=== PATIENT | male | born 1950 | race Caucasian/White ===

== ENCOUNTER 2020-05-14 08:22 | Outpatient (CLI) | payer OTHER, MEDICARE, SELFPAY ==
--- NOTE | 2020-05-14 07:30 | XR_ITS ---
WS: [id number] KUB, 05/14/2020 Clinical Data: RENAL CALCULUS Comparison: KUB, 05/14/2019 Findings: There is a small calcification overlying the midportion of the left kidney. The right kidney is obscu red by fecal material. There are phleboliths in the true pelvis. The patient has had bilateral inguin al hernia repairs. XR/XR KUB [id number] Impression: 1. Possible small left renal calculus. 2. Right kidney is obscured by fecal material.
== END 2020-05-14 08:23 | disposition home or self-care (01) ==
PROVIDERS: PCP Family Medicine; Visit Provider Urology
DX: N20.0 Calculus of kidney (principal)
CPT/HCPCS: 74018; 81001

== ENCOUNTER 2020-06-30 13:46 | Outpatient (CLI) | payer OTHER, SELFPAY ==
--- NOTE | 2020-06-30 13:53 | USCV_ITS ---
Alexander Juarez Age: 69 Gender: M : 1950 Exam Date: 06/30/2020 14:31 Ordering Phys: Sasha Theodore MD Technologist: Nicolle Hodge Exam Location: [facility] [place] Indication: DIZZINESS Risk Factors: Previous Vascular Surgery: None Right Brachial BP: / Left Brachial BP: / Right Left Velocity (cm/s) Spectral Plaque Velocity (cm/s) Spectral Plaque Syst/Diast Broadening Syst/Diast Broadening 66.90/ 15.60 Prox CCA 95.30 / 19.60 72.80/ 19.30 Mid CCA 78.40 / 19.30 70.60/ 19.30 Distal CCA 58.20 / 14.90 75.60/ 17.60 Prox ICA 37.30 / 17.10 58.00/ 18.50 Mid ICA 60.60 / 17.90 57.10/ 19.20 Distal ICA 76.10 / 28.00 64.90 ECA 57.30 0.80 ICA/CCA 0.77 Antegrade Vertebral Antegrade 38.50/ 9.40 cm/s 43.50/ 14.80 cm/s Tri Subclavian Tri 62.40 92.60 CONCLUSIONS Right ICA stenosis <50%. Mild atheromatous plaque right carotid bulb/ICA. Left ICA stenosis <50%. Moderate atheromatous plaque left carotid bulb/ICA. Normal antegrade Doppler flow noted in the right vertebral artery. Normal antegrade Doppler flow noted in the left vertebral artery. Jose Manuel De Los Santos MD (Electronically Signed) Final Date: 30 June 2020 16:47 S
== END 2020-06-30 13:47 | disposition home or self-care (01) ==
LOC: US 13:48
PROVIDERS: PCP Family Medicine; Visit Provider Family Medicine
DX: R42 Dizziness and giddiness (principal); R00.1 Bradycardia, unspecified; I65.23 Occlusion and stenosis of bilateral carotid arteries
CPT/HCPCS: 93880

== ENCOUNTER 2020-10-05 14:17 | Outpatient (CLI) | payer OTHER, SELFPAY ==
--- NOTE | 2020-10-05 14:30 | MR_ITS ---
WS: [id number] MRI BRAIN WITH HIGH-RESOLUTION IMAGING THROUGH THE INTERNAL AUDITORY CANALS WITHOUT AND WITH CONTRAST HISTORY: DIZZINESS AND GIDDINESS COMPARISON: 09/20/2017 TECHNIQUE: Multiplanar, multisequence imaging is performed through the brain. Additional 3 mm imaging performed in multiple planes through the internal auditory canal. Postcontrast imaging with 14 ml's of MultiHance. No acute intracranial hemorrhage, midline shift, edema or mass effect. Mild small vessel ischemic changes in the subcortical and deep white matter. No prior infarcts. There is mild bilateral cerebral and cerebellar atrophy. Again noted is a small venous angioma in the RIGH T temporal lobe. No enhancing masses. No mass at the cerebellopontine angle or along the internal or external auditory canals. Ventricles and extra-axial spaces are normal. No inferior displacement of cerebellar tonsils. Clivus and pituitary gland are normal. Internal and external auditory canals: Unremarkable. Cranial nerves VII and VIII complexes: Unremarkable. No enhancement or mass. Cerebellopontine angles: Normal. Paranasal sinuses: Normal. Mastoid air cells: Normal. Calvarium and scalp: Normal. Visualized [place] and dural venous sinuses demonstrate no abnormality. MR/MR iac's wo/w con* [id number] IMPRESSION: 1. Negative MRI internal auditory canals. Normal cerebellopontine angle. 2. Mild chronic microvascular ischemic disease. 3. Stable RIGHT temporal lobe venous angioma.
[2020-10-05 15:17] LABS: Blood Urea Nitrogen 20 mg/dL (8-23)
[2020-10-05] MEDS: gadobenate dimeglumine 20 mL vial IV (16:59)
== END 2020-10-05 14:18 | disposition home or self-care (01) ==
PROVIDERS: PCP Family Medicine; Visit Provider Specialist
DX: R42 Dizziness and giddiness (principal); Q28.3 Other malformations of cerebral vessels; I67.82 Cerebral ischemia
CPT/HCPCS: 70553; 82565; 84520; A9577

== ENCOUNTER → 2020-10-23 10:26 | Outpatient (BNVA) | payer OTHER, SELFPAY | PROVIDERS: PCP Family Medicine; Visit Provider Surgery | DX: Z20.822 Contact with and (suspected) exposure to COVID-19 (principal) | CPT/HCPCS: 87635 ==

== ENCOUNTER 2020-10-28 08:45 | Day surgery (SDC) | payer OTHER, SELFPAY ==
[2020-10-26 13:51] VITALS: BMI 22.1
[2020-10-28 09:25] VITALS: BP 137/90; PULSE 53; RESP 18; TEMP 36.1; O2SAT 96
[2020-10-28] MEDS: sodium chloride 0.9% 1,000 ML 30 ML IV (09:37)
--- NOTE | 2020-10-28 10:05 | W.PM.OPSUD ---
Surgery/Procedure H&P Update DATE OF PROCEDURE: October 28, 2020 DATE H&P PERFORMED: 09/28/20 H&P UPDATE INFORMATION: I have reviewed H&P completed within last 30 days, I have examined patient prior to procedure and No changes to prior documentation PREOP DIAGNOSIS: Acid reflux disease PRIMARY INDICATION FOR PROCEDURE: The same PLANNED PROCEDURE: Operation Date: 10/28/20 10:15 Proposed Procedures p EGD 63871 K21.9(Not Applicable) - Josef Walker MD
--- NOTE | 2020-10-28 11:27 | ANES.PREANE2 ---
Pre-Anesthetic Assessment Pre-Anesthetic Assessment: Height/Weight: Height 1.75 m Weight 68.039 kg Temp Pulse Resp BP Pulse Ox 97.0 F L 53 L 18 137/90 96 10/28/20 09:25 10/28/20 09:25 10/28/20 09:25 10/28/20 09:25 10/28/20 09:25 Preop Diagnosis: Acid reflux disease Proposed Procedure: Operation Date: 10/28/20 10:15 Proposed Procedures p EGD 53317 K21.9(Not Applicable) - Josef Walker MD Familial anesthetic complications: none Was Beta James taken within 24 hours: N/A Was Clonidine taken within 24 hours: N/A Last intake: Intake Last Liquid Date 10/27/20 Last Liquid Time 19:00 Last Solid Date 10/27/20 Last Solid Time 19:00 Last Intake: 19:00 Social: Social History: No alcohol and No tobacco Exam: Pre-Anes Outpt Exam: alert, oriented x 3, clear to auscultation bilaterally and regular rate & rhythm Airway: Submandibular: WNL Cervical ROM: WNL MP: 2 Dentition: Full Pulmonary: Pulmonary: None reported CV/HEM: CV/HEM: HTN : : None reported Hepatic: Hepatic: None reported GI: GI: GERD Metabolic: Metabolic: None reported Musc/skel: Musc/skel: Lower Back Pain and OA/DJD Neuropsych: Neuropsych: None reported Anesthetic Plan: ASA status: 2 Anesthesia: MAC Meds/Allergies Current Medications: Current Medications Generic Name Dose Route Start Last Admin Trade Name Freq PRN Reason Stop Dose Admin Sodium Chloride 1,000 mls @ 30 ml s/hr 10/28/20 09:15 10/28/20 09:37 Sodium Chloride 0.9% IV 10/29/20 09:14 30 mls/hr .Q24H CLINT Administration PFSH Anesthesia PFSH: Medical History Bladder stone BPH loc w urin obs/LUTS GERD (gastroesophageal reflux disease) Gross hematuria HTN (hypertension) RLS (restless legs syndrome) Status post extracorporeal shock wave therapy LASER LITHOTRIPSY BLADDER STONE Urolithiasis Surgical History Hx of bilateral inguinal hernia repair Family History Father Diabetes Chronic kidney disease (CKD) Mother CAD (coronary artery disease) Social History Smoking and tobacco status: never smoked Alcohol intake: current Alcohol intake frequency: holidays/special occasions only Adopted: No Caregiver/support person: No Lives independently: No Household members: spouse Marital status: Current occupational status: retired Data Anesthesia Cardiac Studies: No Data to Display
[2020-10-28 11:50] VITALS: BP 152/86; PULSE 77; RESP 16; TEMP 36.4; O2SAT 95
--- NOTE | 2020-10-28 11:55 | ANE.PACU2 ---
Inpatient post-anesthesia follow up: Airway intact: Yes Vital signs: Temperature 97.0 F Pulse Rate 53 Respiratory Rate 18 Blood Pressure 137/90 Pulse Oximetry 96 Oxygen Delivery Me thod Room Air Oxygen Flow Rate Fraction of Inspir ed Oxygen Hydration adequate: Yes Nausea and vomiting: No Pain level: 1 Mental status: Baseline
[2020-10-28 12:08] VITALS: BP 106/63; PULSE 64; RESP 16; O2SAT 96
[2020-10-29 06:24] LABS: H. Pylori / CLO Test Negative
== END 2020-10-28 12:20 | disposition home or self-care (01) ==
PROVIDERS: PCP Family Medicine; Visit Provider Surgery
PROC: 0DJ08ZZ Inspection of Upper Intestinal Tract, Via Natural or Artificial Opening Endoscopic (ICD-10-PCS; CPT 43235; principal; 2020-10-28 10:15)
DX: K21.00 Gastro-esophageal reflux disease with esophagitis, without bleeding (principal); K44.9 Diaphragmatic hernia without obstruction or gangrene; K22.70 Barrett's esophagus without dysplasia; K29.70 Gastritis, unspecified, without bleeding; Z79.82 Long term (current) use of aspirin; N40.1 Benign prostatic hyperplasia with lower urinary tract symptoms; N13.8 Other obstructive and reflux uropathy; I10 Essential (primary) hypertension
CPT/HCPCS: 43239; 87077; 88305; 96360; 96361; J2704; J7030

== ENCOUNTER 2021-04-18 10:35 | Observation (INO) | payer OTHER, MEDICARE, SELFPAY ==
[2021-04-18] VITALS (8 sets, daily range): BP systolic 118–158; BP diastolic 83–91; PULSE 59–70; RESP 13–18; TEMP 36.1–36.9; O2SAT 96–100; BMI 22.1
--- NOTE | 2021-04-18 10:59 | ED_ITS ---
HPI - Extremity Injury (Lower) General: Chief Complaint: Extremity Injury, Lower Stated Complaint: Injured Rgt Foot/Ankle Time Seen by Provider: 04/18/21 10:59 History of Present Illness: HPI Narrative: Mr Juarez is a 70-year-old rubén with history of hypertension and vertigo presents emerged department due to fall with leg injury. He reports a history of sudden onset dizzy episodes which caused him to feel off balance. He had another very typical episode of this while at [employer] earlier today. He fell to the ground, no head strike, he immediately had pain and heard a crack sound from his right leg. Since that time he was unable to ambulate. His symptoms are worse with palpation and movement but do not go with rest. Intensity moderate to severe. Quality is aching and sharp. He denies other significant changes in health. No other specific exacerbating or alleviating factors. Review of Systems General: Reports: 10 or more systems reviewed and unremarkable except in HPI and below PFSH ED PFSH: Medical History Bladder stone BPH loc w urin obs/LUTS GERD (gastroesophageal reflux disease) Gross hematuria HTN (hypertension) RLS (restless legs syndrome) Status post extracorporeal shock wave therapy LASER LITHOTRIPSY BLADDER STONE Urolithiasis Surgical History Hx of bilateral inguinal hernia repair Family History Father Diabetes Chronic kidney disease (CKD) Mother CAD (coronary artery disease) Social History Smoking and tobacco status: never smoked Alcohol intake: current Alcohol intake frequency: holidays/special occasions only Adopted: No Caregiver/support person: No Lives independently: No Household members: spouse Marital status: Current occupational status: retired Physical Exam Narrative: EXAM NARRATIVE: GENERAL/CONSTITUTIONAL - well-appearing. Uncomfortable due to leg pain. Eyes - PERRL, no conjunctival injection ENMT - Atraumatic external nose and ears. Moist mucous membranes NECK - supple. trachea midline CARDIOVASCULAR - regular rate and rhythm. Peripheral pulses 2+ and equal RESPIRATORY -clear to auscultation bilaterally. No retractions or accessory muscle use. ABDOMEN/GI - Nontender/Nondistended. No tenderness to percussion or evidence of peritonitis MSK -right lower extremity with palpable deformity, tenderness on the mid to lower third of the lower leg. There is external rotation of the foot/ankle relative to the knee. CMS intact. SKIN - Warm, Dry NEURO - alert and appropriately oriented. strength and sensation intact. Moves all extremities equally. PSYCH - Appropriate mood and affect Procedures Orthopedic Fracture Reduction Fracture #1: Time Out Performed: Yes Side: right Fracture Reduction Location: tibia and fibula Analgesia: procedural sedation Technique: direct manipulation Post Reduction X-rays Demonstrate: acceptable reduction Post-reduction neuro exam: intact Post-reduction vascular exam: intact Splint Applied: Yes Patient Tolerated Procedure: well and no complications Procedural Sedation Indication: fracture/dislocation reduction ASA Class: II Preparation: emu farm worker applied, pulse oximeter, suction/airway equipment at bedside and IV secured IV Propofol dose (mg): 100 Patient Tolerated Procedure: well and no complications Complications: none Course ED course: - Patient was seen and evaluated by me at bedside - Patient placed on cardiac monitors, IV access obtained - Initial evaluation notable for exam as noted above, CMS intact, no evidence of open fracture. - Labs notable for no acute abnormality to explain syncope, given clinical history likely related to chronic vertigo episodes - Imaging notable for proximal fibula and midshaft tibia spiral fractures with rotation. -Dr. Valverde of orthopedic surgery contacted and case was discussed, plan for operative intervention tomorrow -Patient consented for procedural sedation and reduction with planned operative intervention tomorrow. -Procedural sedation and reduction performed. CMS intact after procedure - Upon serial reexamination after treatment the patient was improved - Based on patient history, evaluation, labs, and imaging as interpreted the most likely cause of the patient's condition is complex tibia and fibula fracture. - The results of ED evaluation were discussed with the patient including plan for admission due to requirement for level of care not available if discharged to prevent significant worsening/deterioration. -Hospitalist service contacted and agreed admit the patient - Patient was admitted without further deterioration or significant events. Vital Signs: Vital signs: Vital Signs Temperature 98.2 F 04/20/21 13:31 Pulse Rate 65 04/20/21 13:31 Respiratory Rate 16 04/20/21 13:31 Blood Pressure 154/77 04/20/21 13:31 Pulse Oximetry 97 04/20/21 13:31 MDM - Extremity Injury (Lower) Medical Records: Attestation: I reviewed the patient's medical records. Lab Data: Attestation: I reviewed the patient's lab results. Labs: Lab Results 04/18/21 04/18/21 04/18/21 12:13 12:13 12:13 WBC 8.5 10^3/uL 10^3/ uL (4.0-10.0) RBC 4.40 10^6/uL 10^6 /uL (4.1-5.3) Hgb 14.0 g/dL g/dL (11.7-16.6) Hct 40.8 % L % (42.0-52.0) MCV 92.7 fl fl (80-94) MCH 31.8 pg pg (28.0-34.0) MCHC 34.3 g/dL g/dL (30.0-36.0) RDW 12.9 % % (12.1-15.1) Plt Count 183 10^3/cmm 10^3 /cmm (130-400) MPV 9.3 fL fL (7.4-10.4) Neut % (Auto) 82.7 % % Lymph % (Auto) 8.4 % % [place] % (Auto) 6.1 % % Eos % (Auto) 2.2 % % Baso % (Auto) 0.2 % % Neut # (Auto) 6.99 10^3/uL 10^3 /uL (1.8-7.7) Lymph # (Auto) 0.7 10^3/uL L 10^ 3/uL (0.8-4.8) [place] # (Auto) 0.5 10^3/uL 10^3/ uL (0.2-0.9) Eos # (Auto) 0.2 10^3/uL 10^3/ uL (0.0-0.8) Baso # (Auto) 0.0 10^3/uL 10^3/ uL (0.0-0.1) Nucleated RBC % (a uto) 0 % % Nucleated RBCs # 0.0 /100WBC /100W BC Sodium 139 mmol/L mmol/L (136-145) Potassium 3.9 mmol/L mmol/L (3.5-5.1) Chloride 100 mmol/L mmol/L (98-107) Carbon Dioxide 31 mmol/L H mmol/ L (22-29) Anion Gap 11.9 (5-19) BUN 17 mg/dL mg/dL (8-23) Creatinine 1.0 mg/dL mg/dL (0.7-1.2) GFR Calculation Not Reportable Glucose 106 mg/dL mg/dL (65-115) Calculated Osmolal ity 290 mOsm/kg mOsm/ kg (285-295) Calcium 9.1 mg/dL mg/dL (8.5-10.5) Total Bilirubin 0.4 mg/dL mg/dL (0.15-1.2) AST 14 U/L U/L (0-40) ALT 9 U/L U/L (0-41) Alkaline Phosphata se 87 IU/L IU/L (40-130) Troponin T Baselin e 7 ng/L ng/L (0-15) Total Protein 6.0 g/dL L g/dL (6.6-8.7) Albumin 3.8 g/dL g/dL (3.5-5.2) Globulin 2.2 g/dL g/dL (1.3-4.6) EKG Data^: EKG 1: Attestation: I personally reviewed and interpreted this EKG as follows: EKG interpretation date: 04/18/21 EKG interpretation time: 12:15 Interpretation: Twelve-lead EKG shows a regular sinus rhythm at a rate of 65. [place] interval 202, QRS duration 71, QTc 399. Normal axis. Interpretation: Sinus rhythm. First-degree AV block. Discharge Plan Discharge Patient Disposition: Admitted As Inpatient Admit Provider: Omkar Joseph Condition: Stable Discharge Diet: Cardiac Discharge Activity: Resume usual activity Coding Level of Care Code ED Sample Examiner for [facility] [place]
--- NOTE | 2021-04-18 11:06 | XRR_ITS ---
PROCEDURE INFORMATION: Exam: XR Right Tibia and Fibula Exam date and time: 04/18/2021 11:06 AM Age: 70 years old Clinical indication: Injury or trauma; Fall; Fracture, traumatic; Closed fracture and displaced; Fibula and tibia; Right; Shaft of the fibula; Lower end of tibia; Additional info: Suspected fracture TECHNIQUE: Imaging protocol: XR Right tibia and fibula. Views: 2 views. COMPARISON: CR (LOW EXM, ) 04/18/2021 11:09 AM FINDINGS: Bones/joints: There is unchanged alignment of the mildly overriding spiral fracture of the distal right tibia with lateral displacement of the distal fracture fragments. Nondisplaced fracture of the medial malleolus is noted. Old fracture deformity of the tip of the fibula is identified. Is some sclerosis and bony remodeling of the lateral talus compatible with old osteochondral injury. There is an overriding fracture of the proximal fibula diaphysis with lateral displacement of the distal diaphysis. Proximal fibular fracture also appears to have a nondisplaced component involving the fibular neck. No acute fracture of the proximal tibia or femur. Soft tissues: There is soft tissue edema. XR/XR tibia fibula RT 2V [id number] IMPRESSION: Overriding fractures of the proximal fibula, distal tibia diaphysis and nondisplaced fracture of the medial malleolus are noted.
--- NOTE | 2021-04-18 11:06 | ECG_ITS ---
[facility] Test Date: 2021-04-18 Pat Name: Alexander Juarez Department: Room: 273 Gender: Male Trouble Shooter: : 1950 Requested By: Paulo Talavera Order Number: [id number] Ingrid MD: Carlos Stoddard M.D. Measurements Intervals [place] Rate: 65 P: 55 CO: 202 QRS: 48 QRSD: 71 T: 55 QT: 382 QTc: 399 Interpretive Statements SINUS RHYTHM Compared to ECG 04/19/2019 13:04:00 Sinus bradycardia no longer present Electronically Signed On 04-18-2021 18:16:30 CDT by Carlos Stoddard M.D. [id number]
--- NOTE | 2021-04-18 11:06 | XRR_ITS ---
PROCEDURE INFORMATION: Exam: XR Right Ankle Exam date and time: 04/18/2021 11:06 AM Age: 70 years old Clinical indication: Injury or trauma; Fall; Fracture, traumatic; Closed fracture and displaced; Ankle; Right; Not specified TECHNIQUE: Imaging protocol: XR Right ankle. Views: 1 or 2 views. COMPARISON: No relevant prior studies available. FINDINGS: Bones/joints: There is a spiral fracture of the distal diaphysis of the tibia, nondisplaced fracture of the medial malleolus and chronic appearing osteochondral lesion of the lateral talus and old avulsion fracture of the tip of the fibula. Ankle mortise is intact. Distal tibial fracture fragment is displaced laterally. Moderate degenerative changes in the tibiotalar and subtalar joints are noted. Probable osteochondral bodies are noted in the posterior ankle joint. Soft tissues: There is abundant soft tissue edema. XR/XR ankle RT 2V [id number] IMPRESSION: There is a spiral fracture of the distal diaphysis of the tibia, nondisplaced fracture of the medial malleolus and chronic appearing osteochondral lesion of the lateral talus and old avulsion fracture of the tip of the fibula.
[2021-04-18] MEDS: fentaNYL 50 mcg/mL INJ 2mL IVP ×2 (12:03→13:13)
[2021-04-18] MEDS: sodium chloride 0.9% 1,000 ML 75 ML IV (12:18)
[2021-04-18 12:26] LABS: Basophils % 0.2 %; Eosinophils # 0.2 10^3/uL (0.0-0.8); Eosinophils % 2.2 %; Hematocrit 40.8 % (42.0-52.0); Lymphocytes # 0.7 10^3/uL (0.8-4.8); Lymphocytes % 8.4 %; Mean Corpuscular HGB Conc 34.3 g/dL (30.0-36.0); Mean Corpuscular Hemoglobin 31.8 pg (28.0-34.0); Mean Corpuscular Volume 92.7 fl (80-94); Mean Platelet Volume 9.3 fL (7.4-10.4); Monocytes # 0.5 10^3/uL (0.2-0.9); Monocytes % 6.1 %; Neutrophils # 6.99 10^3/uL (1.8-7.7); Neutrophils % 82.7 %; Nucleated Red Blood Cells % 0 %; Platelet Count 183 10^3/cmm (130-400); Red Cell Distribution Width 12.9 % (12.1-15.1); White Blood Count 8.5 10^3/uL (4.0-10.0)
[2021-04-18 12:48] LABS: Troponin(5th) Baseline 7 ng/L (0-15)
[2021-04-18 12:50] LABS: Alanine Aminotransferase 9 U/L (0-41); Albumin Level 3.8 g/dL (3.5-5.2); Alkaline Phosphatase 87 IU/L (40-130); Anion Gap 11.9 (5-19); Aspartate Amino Transferase 14 U/L (0-40); Blood Urea Nitrogen 17 mg/dL (8-23); Calcium 9.1 mg/dL (8.5-10.5); Carbon Dioxide 31 mmol/L (22-29); Chloride 100 mmol/L (98-107); Globulin 2.2 g/dL (1.3-4.6); Glucose 106 mg/dL (65-115); Osmolality Calculated 290 mOsm/kg (285-295); Potassium 3.9 mmol/L (3.5-5.1); Sodium 139 mmol/L (136-145); Total Bilirubin 0.4 mg/dL (0.15-1.2)
[2021-04-18] MEDS: propofol 10 mg/mL SDV 20 mL IVP (12:50)
--- NOTE | 2021-04-18 13:06 | XRR_ITS ---
PROCEDURE INFORMATION: Exam: XR Right Tibia and Fibula Exam date and time: 04/18/2021 1:06 PM Age: 70 years old Clinical indication: Injury or trauma; Fall; Fracture, traumatic; Closed fracture; Tibia; Right; Additional info: Post reduction TECHNIQUE: Imaging protocol: XR Right tibia and fibula. Views: 2 views. COMPARISON: CR (LOW EXM, ) 04/18/2021 11:10 AM FINDINGS: Bones/joints: Spiral fracture through the proximal fibular shaft with medial angulation. Spiral comminuted fracture through the distal tibial shaft with mild displacement and mild dorsal angulation. Significant improvement in alignment and position of fractures with placement of cast material. Soft tissues: Normal. XR/XR tibia fibula RT 2V [id number] IMPRESSION: 1. Spiral fracture through the proximal fibular shaft with medial angulation. 2. Spiral comminuted fracture through the distal tibial shaft with mild displacement and mild dorsal angulation. 3. Significant improvement in alignment and position of fractures with placement of cast material.
--- NOTE | 2021-04-18 13:29 | PC.NURSE ---
IV Diprovan given by provider at time of moderate sedation
--- NOTE | 2021-04-18 15:13 | P.HP_ITS ---
Providers/Chief Complaint Admitting Physician: Omkar Joseph Primary Care Provider: Guille Betancur MD Chief Complaint: Injured Rgt Foot/Ankle History of Present Illness Very pleasant 70-year-old gentleman with history of chronic recurrent episodes of vertigo, previously assessed by work-up that also included MRI, reports started with hearing loss about a year ago in the right ear suffered a fall after a episode of dizziness at [employer] today with finding of a fracture on the right. ER physician contacted orthopedics who reviewed the case with tentative plans for surgical repair tomorrow. Request is made for hospitalist to admit. Discussing with him, he states otherwise has been at baseline state of health. He gets intermittent episodes of dizziness where everything gets shifty for short time, and then subsides. He tries to brace himself during the night.. Denies any syncopal episodes. He otherwise has not been having any dyspnea. No chest pain. Denies any exertional anginal symptoms. States he walks about 200 yards to the mailbox and unless experiences an episode of dizziness does not have to take a break to rest. States that he takes aspirin only prophylactically. No longer takes meloxicam. With regards to CODE STATUS, he states he would be okay with receiving cardiopulmonary resuscitation in case of cardiopulmonary arrest, but would not want prolonged life support. Review of Systems 2 Const: Denies: fever(s), chills, body aches or malaise Eyes: Denies: change in vision or eye redness ENMT: Denies: throat pain, oral sores or ear or mastoid pain Card: Denies: chest pain, edema, pre-syncope or dyspnea on exertion Resp: Denies: dyspnea, productive cough, change in phlegm color or hemoptysis GI: Denies: abdominal pain, nausea, vomiting, diarrhea, constipation, hematochezia or melena : Denies: flank pain, difficulty urinating, urinary frequency or hematuria Musc: Reports: other (per HPI); Denies: back pain, joint swelling or joint redness Skin/Breast: Denies: rash, sores or new lesions Neuro: Reports: vertigo; Denies: headache(s), numbness in extremities, weakness in extremities, dizziness, confusion or seizure-like activity Endo: Denies: polyuria or polydipsia Eugene/Lymph: Denies: easy bleeding or purpura All/Imm: Denies: urticaria, throat swelling or tongue swelling Medications/Allergies Home Medications Medication Instructions Recorded Confirmed Last Taken Type aspirin 81 mg tablet,delayed 81 mg PO DAILY 05/14/20 04/18/21 04/18/21 History release citalopram 20 mg tablet 20 mg PO DAILY 05/14/20 04/18/21 04/18/21 History gabapentin 300 mg capsule 300 mg PO BID 05/14/20 04/18/21 04/18/21 History hydrochlorothiazide 12.5 mg tablet 12.5 mg PO DAILY 05/14/20 04/18/21 04/18/21 History meloxicam 15 mg tablet 15 mg PO DAILY 05/14/20 04/18/21 04/18/21 History pantoprazole 40 mg tablet,delayed 40 mg PO DAILY 05/14/20 04/18/21 04/18/21 History release tramadol 50 mg tablet 100 mg PO BID PRN 05/14/20 04/18/21 10/27/20 21:00 History Allergies Allergy/AdvReac Type Severity Reaction Status Date / Time Sulfa (Sulfonamide Allergy Unknown Unknown Verified 11/11/20 15:56 Antibiotics) PFSH Acute PFSH: Medical History Bladder stone BPH loc w urin obs/LUTS GERD (gastroesophageal reflux disease) Gross hematuria HTN (hypertension) RLS (restless legs syndrome) Status post extracorporeal shock wave therapy LASER LITHOTRIPSY BLADDER STONE Urolithiasis Surgical History Hx of bilateral inguinal hernia repair Family History Father Diabetes Chronic kidney disease (CKD) Mother CAD (coronary artery disease) Social History Smoking and tobacco status: never smoked Alcohol intake: current Alcohol intake frequency: holidays/special occasions only Adopted: No Caregiver/support person: No Lives independently: No Household members: spouse Marital status: Current occupational status: retired Vitals/I&O/Wt Last Vital Signs Temp 96.9 F L 09/19/21 10:54 Pulse 62 04/18/21 13:51 Resp 13 04/18/21 13:51 BP 135/84 04/18/21 13:51 Pulse Ox 100 04/18/21 13:51 04/18/21 04/18/21 04/18/21 06:59 14:59 22:59 Intake Total 191.25 / 191.25 Balance 191.25 / 191.25 Weight last 48 hrs Weight 68.039 kg Physical Exam Const: COMMON NORMALS: no acute distress, patient oriented x3 and alert GENERAL APPEARANCE: cooperative and comfortable ORIENTATION/CONSCIOUSNESS: Yes awake OTHER: Pleasant, conversant. HENMT: COMMON NORMALS: oropharynx normal Neck/C-Spine: COMMON NORMALS: no JVD Resp: COMMON NORMALS: normal respiratory effort and clear to auscultation bilaterally AUSCULTATION: clear to auscultation bilaterally Cardio: COMMON NORMALS: no JVD, regular rhythm, S1 normal heart sound present, S2 normal heart sound present and No murmurs present (Cardio) RHYTHM: regular rhythm HEART SOUNDS: S1 normal heart sound present and S2 normal heart sound present GI: COMMON NORMALS: Normal to inspection, nondistended, normoactive bowel sounds present, Soft to palpation and non-tender PALPATION: Yes Soft to palpation Extremity: COMMON NORMALS: no joint enlargement and no pedal edema OTHER: RLE splinted Neuro: COMMON NORMALS: patient oriented x3 and moves all extremities Skin: COMMON NORMALS: no rashes or lesions noted GENERAL SKIN EXAM: no rashes or lesions noted Data : 04/18/21 12:13 04/18/21 12:13 A&P Assessment and plan (1) Fracture of tibia with fibula, right, closed: R displaced spiral tib, fib fracture, reduced and splinted in ER. He is agreeable with tentative plan for surgical repair, pending being seen by orthopedics. EKG with NSR. Troponin normal. He walks 200 yards to his mailbox and if not interrupted by dizziness does not need to stop. RCRI 0. Hold ASA. Takes it prophylactically. N.p.o. after midnight. COVID-19 PCR. Pain control as needed. As he suffers from GERD, would avoid NSAIDs. Status: Acute Additional A&P Information Vertigo episodes: Reports this has been extensively worked up, has seen ENT as well. Intermittent episodes. Discussed with him may also need to consider ass istive device to help him brace on in case of episode to prevent additional falls. Will need PT assessment. HTN GERD RLS BPH Depression, PTSD after [place] war Other comorbidities noted Attestations Medical Necessity Statement*: Place in observation for management of spiral comminuted tibial fracture and fibular fracture of right lower extremity. 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
[2021-04-18] MEDS: heparin 5,000 unit/mL INJ 1 mL 5000 UNIT SUBCUT (16:29)
[2021-04-18] MEDS: TRAMadol 50 mg Tablet 100 MG PO (16:29)
[2021-04-18] MEDS: HYDROcodone-acetaminophen 5-325 mg Tablet 1 TAB PO (21:58)
[2021-04-19] VITALS (21 sets, daily range): BP systolic 140–163; BP diastolic 69–102; PULSE 47–96; RESP 16–21; TEMP 36.4–37.2; O2SAT 93–100; BMI 21.2
--- NOTE | 2021-04-19 | SCC_ITS ---
Procedure Done: 1. IM nail Right Tibia 123.4 seconds of fluoroscopic guidance, for a cumulative dose of 4.25 mGy, was provided to Dr. Valverde by the radiology department. C-arm images of the RIGHT lower leg were saved for the patient's permanent record. [facility]
--- NOTE | 2021-04-19 | XR_ITS ---
WS: [id number] INTRAOPERATIVE TECHNIQUE: 5 Spot fluoroscopic images for intraoperative purposes. FLUOROSCOPY TIME: 123.4 seconds CLINICAL INFORMATION: ORIF TIB FIB COMPARISON: None. FINDINGS: Intraoperative changes intramedullary celi and screw fixation right tibia. Hardware appears in good po sition. Comminuted slightly displaced fracture involving the proximal fibula. XR/XR tibia fibula RT 2V [id number] IMPRESSION: Images obtained for intraoperative purposes.
[2021-04-19] MEDS: TRAMadol 50 mg Tablet 100 MG PO ×2 (01:11→21:23)
[2021-04-19 05:17] LABS: Basophils % 0.3 %; Eosinophils # 0.1 10^3/uL (0.0-0.8); Hemoglobin 13.7 g/dL (11.7-16.6); Lymphocytes % 9.2 %; Mean Corpuscular HGB Conc 33.4 g/dL (30.0-36.0); Mean Corpuscular Hemoglobin 31.2 pg (28.0-34.0); Mean Corpuscular Volume 93.4 fl (80-94); Mean Platelet Volume 9.4 fL (7.4-10.4); Monocytes # 0.8 10^3/uL (0.2-0.9); Monocytes % 7.6 %; Neutrophils # 8.94 10^3/uL (1.8-7.7); Neutrophils % 81.6 %; Nucleated Red Blood Cells % 0 %; Platelet Count 170 10^3/cmm (130-400); Red Blood Count 4.39 10^6/uL (4.1-5.3)
[2021-04-19 05:37] LABS: Blood Urea Nitrogen 16 mg/dL (8-23); Calcium 9.1 mg/dL (8.5-10.5); Carbon Dioxide 28 mmol/L (22-29); Chloride 103 mmol/L (98-107); Glucose 99 mg/dL (65-115); Osmolality Calculated 287 mOsm/kg (285-295); Sodium 138 mmol/L (136-145)
[2021-04-19] MEDS: HYDROcodone-acetaminophen 5-325 mg Tablet 1 TAB PO (06:04)
[2021-04-19 06:32] LABS: Anion Gap 11.2 (5-19); Potassium 4.2 mmol/L (3.5-5.1)
--- NOTE | 2021-04-19 06:51 | P.CONIM_ITS ---
Providers/Reason For Consult Consulting Physician/Specialty*: hospitalist Reason for Consult*: tibia fracture Attending Physician: Omkar Joseph Primary Care Provider: Guille Betancur MD History of Present Illness History of Present Illness Alexander Juarez is a 70 year old male He reports a history of sudden onset dizzy episodes which caused him to feel off balance. He had another very typical episode of this while at [employer] earlier today. He fell to the ground, no head strike, he immediately had pain and heard a crack sound from his right leg. Review of Systems General: Reports: 10 or more systems reviewed and unremarkable except in HPI and below Const: Denies: fever(s), chills, body aches or malaise Eyes: Denies: change in vision or eye redness ENMT: Denies: throat pain, oral sores or ear or mastoid pain Card: Denies: chest pain, edema, pre-syncope or dyspnea on exertion Resp: Denies: dyspnea, productive cough, change in phlegm color or hemoptysis GI: Denies: abdominal pain, nausea, vomiting, diarrhea, constipation, hemato chezia or melena : Denies: flank pain, difficulty urinating, urinary frequency or hematuria Musc: Reports: other (per HPI); Denies: back pain, joint swelling or joint redness Skin/Breast: Denies: rash, sores or new lesions Neuro: Reports: vertigo; Denies: headache(s), numbness in extremities, weakness in extremities, dizziness , confusion or seizure-like activity Endo: Denies: polyuria or polydipsia Eugene/Lymph: Denies: easy bleeding or purpura All/Imm: Denies: urticaria, throat swelling or tongue swelling Meds/Allergies Home Medications and Allergies Home Medications Medication Instructions Recorded Confirmed Last Taken Type aspirin 81 mg tablet,delayed 81 mg PO DAILY 05/14/20 04/18/21 04/18/21 History release citalopram 20 mg tablet 20 mg PO DAILY 05/14/20 04/18/21 04/18/21 History gabapentin 300 mg capsule 300 mg PO BID 05/14/20 04/18/21 04/18/21 History hydrochlorothiazide 12.5 mg tablet 12.5 mg PO DAILY 05/14/20 04/18/21 04/18/21 History meloxicam 15 mg tablet 15 mg PO DAILY 05/14/20 04/18/21 04/18/21 History pantoprazole 40 mg tablet,delayed 40 mg PO DAILY 05/14/20 04/18/21 04/18/21 History release tramadol 50 mg tablet 100 mg PO BID PRN 05/14/20 04/18/21 10/27/20 21:00 History Allergies Allergy/AdvReac Type Severity Reaction Status Date / Time Sulfa (Sulfonamide Allergy Unknown Unknown Verified 11/11/20 15:56 Antibiotics) Current Medications Current Medications Generic Name Dose Route Start Last Admin Trade Name Freq PRN Reason Stop Dose Admin Hydrocodone Bitart/Acetaminophen 1 tab 04/18/21 21:47 04/19/21 06:04 Hydrocodone-Acetaminophen 5-325 Mg Tablet PO 1 tab Q8H PRN Administration MODERATE PAIN Tramadol HCl 100 mg 04/18/21 15:17 04/19/21 01:11 Tramadol 50 Mg Tablet PO 100 mg TID PRN Administration Pain PFSH Acute PFSH: Medical History Bladder stone BPH loc w urin obs/LUTS GERD (gastroesophageal reflux disease) Gross hematuria HTN (hypertension) RLS (restless legs syndrome) Status post extracorporeal shock wave therapy LASER LITHOTRIPSY BLADDER STONE Urolithiasis Surgical History Hx of bilateral inguinal hernia repair Family History Father Diabetes Chronic kidney disease (CKD) Mother CAD (coronary artery disease) Social History Smoking and tobacco status: never smoked Alcohol intake: current Alcohol intake frequency: holidays/special occasions on ly Adopted: No Caregiver/support person: No Lives independently: No Household members: spouse Marital status: Current occupational status: retired Vitals/I&O/Wt Last Vital Signs Temp 98.0 F 04/19/21 03:43 Pulse 65 04/19/21 03:43 Resp 18 04/19/21 03:43 BP 157/92 04/19/21 03:43 Pulse Ox 96 04/19/21 03:43 04/18/21 04/18/21 04/19/21 14:59 22:59 06:59 Intake Total 191.25 / 191.25 400 / 591.25 Output Total 1125 / 1125 275 / 1400 Balance 191.25 / 191.25 -725 / -533.75 -275 / -808.75 Weight last 48 hrs Weight 144 lb 3.2 oz Weight 150 lb Physical Exam Narrative: EXAM NARRATIVE: CONSTITUTIONAL: The patient is a normal appearing [] in no apparent distress. GENERAL: Patient in no acute distress. CARDIAC: Regular rate and rhythm. CHEST: Normal inspiratory effort, normal respiratory rate. ABDOMEN: Soft and nontender. SKIN: Clear, warm and intact. NEURO?PSYCH: The patient is alert and oriented to person, place and time. Sensorv /SILT Motor StrengthShoulder abduction C5 5/5Wrist extension C6 5/5Elbow extension C7 5/5Hand Photographer Model C8 5/5Finger abduction T15/5 Radial/ Ulnar/ Median n intact LowerSensory (SILT)Motor StrengthHin flexion L2/3Ant/inner thigh 5/5Hip adduction L2/3 5/5Knee extension L4 Lat thigh, 5/5Toe dorsiflexion L5 5/5Ankle dorsiflexion L5/ R46Pmtayet flexion S1 5/5 DTRBleeps 2+Triceps 2+Brachioradialis 2+Patellar 2+Achilles 2+ MUSCULOSKELETAL: [] UPPEREXTREMITIES: The patient had full active ROM in fingers, wrist, elbow, and shoulder. The patient demonstrated ability to fully flex/extend/abduct/adduct fingers, make ok sign, cross 2nd/3rd digits, extend 1st digit fully.. Radial pulse 2+, CR<2 seconds. 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
[2021-04-19] MEDS: citalopram 20 mg Tablet PO (09:05)
[2021-04-19] MEDS: pantoprazole DR 40 mg Tablet PO (09:05)
[2021-04-19] MEDS: acetaminophen 325 mg Tablet 650 MG PO (09:12)
--- NOTE | 2021-04-19 10:08 | PC.CHAP ---
Pastoral Care Encounter/Spiritual Assessment Type of Contact [] Declined theoretical physicist visit [] Patient/Family/Request visit [] Outpatient visit [] Follow-up visit [] Physician referral [] Code/Alert [x] Routine visit [] Staff referral [] Actively dying [] Patient sleeping [] Family support [] [] Out of room [] Palliative care [] [] Receiving care in room [] Pre-surgical visit [] Trauma [] Long length of stay [] ICU visit [] Other: Relational/Emotional Strength []x Patient feels connected with others/family/visitors/staff [] Distress [] Loneliness/isolation [] Abandonment Spirituality of Patient [x] Person of Taya [x] Attends Spiritism of their Taya [x] Believes in Prayer []x Reads Bible or Gnosticist materials [] There are Spiritual issues to be addressed Bell Maker Interventions [x] Prayer [x] Active listening [x] Non-anxious presence [x] Spiritual/emotional support [] Crisis/trauma care [] Spiritual counseling [] Bereavement support [] Provided bereavement packet [] Provided Bible/devotional materials [] Provided toy/stuffed animal, coloring book to patient or family member [] Provided Communion [] Anointing/[place] [] Salvation [] Completed spiritual assessment [] Other: Impact on Illness or Injury [] Angry [] Fearful [] Anxious [] Often cries [] Exhaustion [] Unable to work [] Unable to attend gnosticist [] Unable to walk/stand [] Unable to read [] Unable to drive [] Unable to eat/drink [] Unable to sleep [] Unable to be with family [] Patient intubated [] Other: Summary pain but ready for surgery Time spent with patient 15 min
--- NOTE | 2021-04-19 10:30 | ANES.PREANE2 ---
Pre-Anesthetic Assessment Pre-Anesthetic Assessment: Height/Weight: Height 1.75 m Weight 65.408 kg Temp Pulse Resp BP Pulse Ox 97.6 F 74 18 144/85 98 04/19/21 10:14 04/19/21 10:14 04/19/21 10:14 04/19/21 10:14 04/19/21 10:14 Preop Diagnosis: Acid reflux disease Proposed Procedure: Operation Date: 04/19/21 12:05 Proposed Procedures p IM Tibial Nail Insertion(Right) - John Valverde, DO Was Beta James taken within 24 hours: N/A Was Clonidine taken within 24 hours: N/A Social: Social History: Tobacco and No alcohol Exam: Pre-Anes Outpt Exam: alert, oriented x 3, clear to auscultation bilaterally and regular rate & rhythm Airway: Submandibular: WNL Cervical ROM: WNL MP: 2 Dentition: Chipped CV/HEM: CV/HEM: HTN GI: GI: GERD Musc/skel: Musc/skel: OA/DJD Comments: Chronic pain Neuropsych: Neuropsych: Neuropathy Anesthetic Plan: ASA status: 3 Anesthesia: General Risk of > 500 ml blood loss (7ml/kg in children): No Meds/Allergies Current Medications: Current Medications Generic Name Dose Route Start Last Admin Trade Name Freq PRN Reason Stop Dose Admin Acetaminophen 650 mg 04/18/21 15:30 04/19/21 09:12 Acetaminophen 32 5 Mg Tablet PO 650 mg Q6H PRN Administration Mild/Mod Pain Or Temp >/= 101 Hydrocodone Bitart /Acetaminophen 1 tab 04/18/21 21:47 04/19/21 06:04 Hydrocodone-Acet aminophen 5-325 Mg Tablet PO 1 tab Q8H PRN Administration MODERATE PAIN Citalopram Hydrobr omide 20 mg 04/19/21 09:00 04/19/21 09:05 Citalopram 20 Mg Tablet PO 20 mg DAILY CLINT Administration Pantoprazole Sodiu m 40 mg 04/19/21 09:00 04/19/21 09:[address] 40 Mg Tablet PO 40 mg DAILY CLINT Administration Tramadol HCl 100 mg 04/18/21 15:17 04/19/21 01:11 Tramadol 50 Mg T ablet PO 100 mg TID PRN Administration Pain PFSH Anesthesia PFSH: Medical History Bladder stone BPH loc w urin obs/LUTS GERD (gastroesophageal reflux disease) Gross hematuria HTN (hypertension) RLS (restless legs syndrome) Status post extracorporeal shock wave therapy LASER LITHOTRIPSY BLADDER STONE Urolithiasis Surgical History Hx of bilateral inguinal hernia repair Family History Father Diabetes Chronic kidney disease (CKD) Mother CAD (coronary artery disease) Social History Smoking and tobacco status: never smoked Alcohol intake: current Alcohol intake frequency: holidays/special occasions only Adopted: No Caregiver/support person: No Lives independently: No Household members: spouse Marital status: Current occupational status: retired Data Anesthesia CBC & Chem 7: 04/19/21 05:00 04/19/21 05:00 Other Labs: Laboratory Results - last 48 hr 04/18/21 04/18/21 04/18/21 12:13 12:13 12:13 WBC 8.5 RBC 4.40 Hgb 14.0 Hct 40.8 L MCV 92.7 MCH 31.8 MCHC 34.3 RDW 12.9 Plt Count 183 MPV 9.3 Neut % (Auto) 82.7 Lymph % (Auto) 8.4 [place] % (Auto) 6.1 Eos % (Auto) 2.2 Baso % (Auto) 0.2 Neut # (Auto) 6.99 Lymph # (Auto) 0.7 L [place] # (Auto) 0.5 Eos # (Auto) 0.2 Baso # (Auto) 0.0 Nucleated RBC % (auto) 0 Nucleated RBCs # 0.0 Sodium 139 Potassium 3.9 Chloride 100 Carbon Dioxide 31 H Anion Gap 11.9 BUN 17 Creatinine 1.0 GFR Calculation Not Reportable Glucose 106 Calculated Osmolality 290 Calcium 9.1 Total Bilirubin 0.4 AST 14 ALT 9 Alkaline Phosphatase 87 Troponin T Baseline 7 Total Protein 6.0 L Albumin 3.8 Globulin 2.2 04/19/21 04/19/21 05:00 05:00 WBC 11.0 H RBC 4.39 Hgb 13.7 Hct 41.0 L MCV 93.4 MCH 31.2 MCHC 33.4 RDW 13.0 Plt Count 170 MPV 9.4 Neut % (Auto) 81.6 Lymph % (Auto) 9.2 [place] % (Auto) 7.6 Eos % (Auto) 1.0 Baso % (Auto) 0.3 Neut # (Auto) 8.94 H Lymph # (Auto) 1.0 [place] # (Auto) 0.8 Eos # (Auto) 0.1 Baso # (Auto) 0.0 Nucleated RBC % (auto) 0 Nucleated RBCs # 0.0 Sodium 138 Potassium 4.2 Chloride 103 Carbon Dioxide 28 Anion Gap 11.2 BUN 16 Creatinine 1.0 GFR Calculation Not Reportable Glucose 99 Calculated Osmolality 287 Calcium 9.1 Total Bilirubin AST ALT Alkaline Phosphatase Troponin T Baseline Total Protein Albumin Globulin Cardiac Studies: No Data to Display
[2021-04-19 10:55] LABS: Iron 67 ug/dL (59-158); Percent Saturation 33.1 % (20-50); Total Iron Binding Capacity 202 mcg/dl; Unsaturated Iron Binding 135 ug/dL (112-347)
[2021-04-19 11:00] LABS: Thyroid Stimulating Hormone 1.36 uIU/mL (0.27-4.20)
[2021-04-19 11:09] LABS: Folate Level 10.6 ng/mL (4.5-32.2)
[2021-04-19 11:11] LABS: Vitamin B12 420 pg/mL (232-1245)
[2021-04-19] MEDS: sodium chloride 0.9% 1,000 ML 30 ML IV (13:07)
[2021-04-19 13:46] LABS: Coronavirus Test Green County Not Detected
--- NOTE | 2021-04-19 14:19 | P.OP_ITS ---
Operative Report Date of procedure: April 19, 2021 Pre-op Diagnosis: Right Tibia/Fibula fracture Post-op diagnosis: same Procedure Done: 1. IM nail Right Tibia Surgeon: John Valverde Anesthesiology Physician: Pierre Prado Anesthesia: General Estimated blood loss (mL): 20 Condition: stable Procedure: 1. IM nail Right tibia Patient was brought to the operative suite. Placed in the supine position on his impingement well-padded patient's prepped and draped normal sterile fashion. Skin is made over the proximal part of the patella. The quad tendon was split. The dilator was inserted into the knee to the top of the to plateau in the center position of the tibia medullary canal. The guidewire was inserted. This is all done under C-arm guidance. The opening reamer was inserted. And then the ball guidewire was passed. Once the fracture was approached the fracture was reduced. Guidewire was passed across the fracture site. AP lateral fluoroscopy ensured that the fracture was adequately reduced and that the wire was in good position. The canal was then reamed to 12-1/2. An 11 x 315 nail was inserted. 2 screws were placed proximally. And to the screws were placed medial to lateral distally and 1 screw anterior to posterior distally. AP lateral fluoroscopy ensured the fracture and hardware were in appropriate position. Wounds were irrigated the distal wounds were closed with nylon suture. And then the proximal limbs were closed with Vicryl and renita. Sterile dressings were applied patient was transferred to the PACU in stable condition.
[2021-04-19] MEDS: fentaNYL 50 mcg/mL INJ 2mL IVP ×2 (14:34→14:41)
[2021-04-19] MEDS: HYDROmorphone 1 mg/mL INJ 1 mL 0.5 MG IVP (14:50)
--- NOTE | 2021-04-19 14:58 | SUR.PHASEI ---
PT REPOSITIONED MULTIPLE TIMES, PT NOW ON BACK , SEE PAIN MEDS GIVEN EARLER PT ON 3LNC TO KEEP SATS OVER 90% PT SLEEPS NOW IF NOT DISTURBED, DISTAL RT FOOT COOL BUT PINK WITH PULSE NOTED CAP REFILL LESS THAN 3 SECONDS. LEG ELEVATED ON PILLOW AND KNEE GATCH OF BED.REPORT CALLED TO FLOOR.
--- NOTE | 2021-04-19 15:28 | ANE.PACU2 ---
Inpatient post-anesthesia follow up: Airway intact: Yes Vital signs: Temperature 97.8 F Pulse Rate [Left R adial] 70 Pulse Rate 73 Respiratory Rate 17 Blood Pressure [Ri ght Arm] 144/89 Blood Pressure 140/86 Pulse Oximetry 98 Oxygen Delivery Me thod Nasal Cannula Oxygen Flow Rate 3 Fraction of Inspir ed Oxygen Hydration adequate: Yes Nausea and vomiting: No Pain level: 2 Mental status: Baseline
--- NOTE | 2021-04-19 17:11 | P.PN_ITS ---
Subjective Subjective: Interval history: Seen postoperatively today. Tolerated the procedure well. Denies any nausea vomiting, headache. Postoperative day 0. Vitals/I&O/Wt Last Vital Signs Temp 98.3 F 04/19/21 16:20 Pulse 75 04/19/21 16:20 Resp 17 04/19/21 16:20 BP 160/88 04/19/21 16:20 Pulse Ox 96 04/19/21 16:20 04/19/21 04/19/21 04/19/21 06:59 14:59 22:59 Intake Total 160 / 160 Output Total 275 / 1400 0 / 0 Balance -275 / -808.75 160 / 160 Weight last 48 hrs Weight 65.408 kg Weight 68.039 kg Physical Exam Const: COMMON NORMALS: no acute distress, patient oriented x3 and alert GENERAL APPEARANCE: cooperative and comfortable ORIENTATION/CONSCIOUSNESS: Yes awake OTHER: Pleasant, conversant. HENMT: COMMON NORMALS: oropharynx normal Neck/C-Spine: COMMON NORMALS: no JVD Resp: COMMON NORMALS: normal respiratory effort and clear to auscultation bilaterally AUSCULTATION: clear to auscultation bilaterally Cardio: COMMON NORMALS: no JVD, regular rhythm, S1 normal heart sound present, S2 normal heart sound present and No murmurs present (Cardio) RHYTHM: regular rhythm HEART SOUNDS: S1 normal heart sound present and S2 normal heart sound present GI: COMMON NORMALS: Normal to inspection, nondistended, normoactive bowel sounds present, Soft to palpation and non-tender PALPATION: Yes Soft to palpation Extremity: COMMON NORMALS: no joint enlargement and no pedal edema OTHER: RLE splinted Neuro: COMMON NORMALS: patient oriented x3 and moves all extremities SENSORIUM/ORIENTATION: Yes alert Skin: COMMON NORMALS: no rashes or lesions noted GENERAL SKIN EXAM: no rashes or lesions noted Data : 04/19/21 05:00 04/19/21 05:00 A&P Assessment and plan (1) Fracture of tibia with fibula, right, closed: R displaced spiral tib, fib fracture, reduced and splinted in ER. Postoperative day 0. Appreciate Dr. Valverde's recommendation. Physical therapy/Occupational Therapy/anticoagulation/perioperative antibiotics as per orthopedics team. Pain control as needed. As he suffers from GERD, would avoid NSAIDs. COVID-19 PCR sent out. Continue isolation precautions. Status: Acute Additional A&P Information Vertigo episodes: Reports this has been extensively worked up, has seen ENT as well. Intermittent episodes. Discussed with him may also need to consider assistive device to help him brace on in case of episode to prevent additional falls. Will need PT assessment. Check orthostatics. Telemetry. Check iron panel, vitamin B12, folate, TSH levels. HTN: Goal blood pressure less than 140/90 mmHg. Patient takes hydrochloroth iazide at home. If blood pressure continues to remain elevated will add on amlodipine. GERD RLS BPH Depression, PTSD after [place] war Full code. Cardiac diet. Anticoagulation as per surgical team. Protonix OPD prophylaxis. Attestations Medical Necessity Statement*: Requires further hospitalization for po stoperative care for fracture of tibia and fibula post mechanical fall secondary to vertigo Time Spent in Patient Care: Greater than 35 minutes (>than 50% of time spent in counselling and/or direct pt care on unit) . 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
[2021-04-19] MEDS: gabapentin 300 mg Capsule PO (17:32)
[2021-04-19] MEDS: amlodipine 10 mg Tablet PO (17:32)
[2021-04-20] VITALS (7 sets, daily range): BP systolic 138–159; BP diastolic 74–86; PULSE 65–99; RESP 16–18; TEMP 36.7–37.1; O2SAT 97–98
[2021-04-20 02:57] LABS: Basophils % 0.1 %; Hematocrit 37.9 % (42.0-52.0); Hemoglobin 12.7 g/dL (11.7-16.6); Lymphocytes # 0.9 10^3/uL (0.8-4.8); Lymphocytes % 6.3 %; Mean Corpuscular HGB Conc 33.5 g/dL (30.0-36.0); Mean Corpuscular Hemoglobin 31.8 pg (28.0-34.0); Mean Platelet Volume 9.7 fL (7.4-10.4); Monocytes # 1.1 10^3/uL (0.2-0.9); Monocytes % 8.3 %; Neutrophils # 11.49 10^3/uL (1.8-7.7); Neutrophils % 84.9 %; Nucleated Red Blood Cells % 0 %; Platelet Count 165 10^3/cmm (130-400); Red Blood Count 3.99 10^6/uL (4.1-5.3); Red Cell Distribution Width 13.2 % (12.1-15.1); White Blood Count 13.5 10^3/uL (4.0-10.0)
[2021-04-20 03:13] LABS: Alanine Aminotransferase 8 U/L (0-41); Albumin Level 3.5 g/dL (3.5-5.2); Alkaline Phosphatase 80 IU/L (40-130); Aspartate Amino Transferase 14 U/L (0-40); Blood Urea Nitrogen 17 mg/dL (8-23); Calcium 8.6 mg/dL (8.5-10.5); Carbon Dioxide 27 mmol/L (22-29); Chloride 103 mmol/L (98-107); Globulin 2.5 g/dL (1.3-4.6); Glucose 104 mg/dL (65-115); Osmolality Calculated 290 mOsm/kg (285-295); Sodium 139 mmol/L (136-145); Total Bilirubin 0.6 mg/dL (0.15-1.2)
[2021-04-20 03:14] LABS: Chol HDL Ratio 1.72 mg/dL (1.0-5.00); Cholesterol 98 mg/dL (0-200); HDL Cholesterol 57 mg/dL (60-100); LDL Cholesterol Calculated 31 mg/dL (50-129); Triglycerides 48 mg/dL (0-150); VLDL Cholestrol Calculation 10 mg/dL (0-30)
[2021-04-20 03:18] LABS: Anion Gap 13.3 (5-19); Estmated Average Glucose 105; Hemoglobin A1C 5.3 % (4.0-6.0); Potassium 4.3 mmol/L (3.5-5.1)
[2021-04-20] MEDS: TRAMadol 50 mg Tablet 100 MG PO (05:22)
--- NOTE | 2021-04-20 08:04 | PM.PN ---
Subjective Subjective: Interval history: POD 1 Right IM nail Right Tibia. Patient reports some mild discomfort in his right leg up. He has been working on range of motion to the foot and ankle as well as to the knee. Denies any shortness of breath, chest pain. He is ready go home. Vitals/I&O/Wt Last Vital Signs Temp 98.0 F 04/20/21 07:35 Pulse 71 04/20/21 07:35 Resp 18 04/20/21 07:35 BP 146/75 04/20/21 07:35 Pulse Ox 97 04/20/21 07:35 04/19/21 04/20/21 04/20/21 22:59 06:59 14:59 Intake Total 300 / 460 5 / 465 55 / 55 Output Total 475 / 475 300 / 775 200 / 200 Balance -175 / -15 -295 / -310 -145 / -145 Weight last 48 hrs Weight 147 lb 1.6 oz Weight 144 lb 3.2 oz Weight 150 lb Physical Exam Narrative: EXAM NARRATIVE: He is alert and orient x3 has good general appearance normal normal affect. Extremity: NARRATIVE EXTREMITY EXAM: Dressing with mild drainage at the suprapatellar region. Is able to wiggle all digits they are warm to the touch with good capillary refill. Capsular supple no signs of DVT. No signs of compartment syndrome. Is able to bend the knee slightly can dorsiflex and plantarflex ankle slightly. RIGHT LOWER EXTREMITY: Yes lower leg Data : 04/20/21 02:20 04/20/21 02:20 A&P Assessment and plan (1) Fracture of tibia with fibula, right, closed: Continue to ice and elevate right lower extremity. Will discharge home to continue full dose aspirin twice a day. Will have him follow-up in the office in 2 weeks time to remove the renita and sutures. Instructed him to call the office if he is having problems. Encouraged him to take the incentive spirometer home to work on pulmonary toilet. May continue weightbearing as tolerated with the walker. Status: Acute Attestations Medical Necessity Statement*: ok to DC home Coding Level of Care Code Acute Digital Printer Operator for ajay Fwalma Diagnoses Fracture of tibia with fibula, right, closed S82.201A; S82.401A
[2021-04-20] MEDS: HYDROcodone-acetaminophen 5-325 mg Tablet 1 TAB PO (09:02)
[2021-04-20] MEDS: gabapentin 300 mg Capsule PO (09:35)
[2021-04-20] MEDS: citalopram 20 mg Tablet PO (09:35)
[2021-04-20] MEDS: pantoprazole DR 40 mg Tablet PO (09:35)
[2021-04-20] MEDS: aspirin 81 mg EC Tablet PO (09:36)
[2021-04-20] MEDS: amlodipine 10 mg Tablet PO (09:36)
--- NOTE | 2021-04-20 10:58 | PC.CHAP ---
Pastoral Care Encounter/Spiritual Assessment Type of Contact [] Declined biblical studies professor visit [] Patient/Family/Request visit [] Outpatient visit [] Follow-up visit [] Physician referral [] Code/Alert [x] Routine visit [] Staff referral [] Actively dying [] Patient sleeping [] Family support [] [] Out of room [] Palliative care [] [] Receiving care in room [] Pre-surgical visit [] Trauma [] Long length of stay [] ICU visit [] Other: Relational/Emotional Strength [x] Patient feels connected with others/family/visitors/staff [] Distress [] Loneliness/isolation [] Abandonment Spirituality of Patient [x] Person of Taya [x] Attends Zoroastrianism of their Taya [] Believes in Prayer [] Reads Bible or Presybeterian materials [] There are Spiritual issues to be addressed Veneer Jointer Helper Interventions [] Prayer [x] Active listening [x] Non-anxious presence [x] Spiritual/emotional support [] Crisis/trauma care [] Spiritual counseling [] Bereavement support [] Provided bereavement packet [] Provided Bible/devotional materials [] Provided toy/stuffed animal, coloring book to patient or family member [] Provided Communion [] Anointing/[place] [] Salvation [x] Completed spiritual assessment [] Other: Impact on Illness or Injury [] Angry [] Fearful [] Anxious [] Often cries [] Exhaustion [] Unable to work [] Unable to attend samaritan [] Unable to walk/stand [] Unable to read [] Unable to drive [] Unable to eat/drink [] Unable to sleep [] Unable to be with family [] Patient intubated [] Other: Summary Pt has had surgery to mend broken leg and is waiting for a ride home today. Time spent with patient 15m
--- NOTE | 2021-04-20 11:09 | PC.NURSE ---
patient negative for covid. Dr Giraldo notified. per Dr Giraldo, ok to discontinue isolation order.
--- NOTE | 2021-04-20 11:23 | PM.DCS ---
Discharge Providers Date of Admission: 04/18/21 13:12 Date of Discharge: April 20, 2021 Attending Provider at Admission: Omkar Joseph Attending Provider at Discharge: Rayshawn Giraldo MD Consults: Orthopedic: Dr. Valverde Primary Care Provider: Guille Betancur MD Diagnoses at Discharge Discharge Diagnosis (1) Fracture of tibia with fibula, right, closed: Status: Acute Reason for Visit Reason for Visit: Injured Rgt Foot/Ankle Hospital Course Hospital Course Very pleasant 70-year-old gentleman with history of chronic recurrent episodes of vertigo, previously assessed by work-up that also included MRI, reports started with hearing loss about a year ago in the right ear suffered a fall after a episode of dizziness at [employer] today with finding of a fracture on the right. Patient states otherwise has been at baseline state of health. He gets intermittent episodes of dizziness where everything gets shifty for short time, and then subsides. He tries to brace himself during the night.. Denies any syncopal episodes. He otherwise has not been having any dyspnea. No chest pain. Denies any exertional anginal symptoms. States he walks about 200 yards to the mailbox and unless experiences an episode of dizziness does not have to take a break to rest. Orthopedics was consulted and he underwent IM nail placement to right tibia. Patient tolerated the procedure well. Post for he worked well with physical therapy. He is been discharged home in hemodynamically stable condition with advised to follow-up with orthopedics team in 2 weeks and his primary care provider within next 1 week. He is also advised to follow-up with his ENT within next 1 week for persistent vertigo. During hospitalization patient did not have any further episodes of vertigo. His antihypertensives have been changed from hydrochlorothiazide to amlodipine. Physical Exam Const: COMMON NORMALS: no acute distress, patient oriented x3 and alert GENERAL APPEARANCE: cooperative and comfortable ORIENTATION/CONSCIOUSNESS: Yes awake OTHER: Pleasant, conversant. HENMT: COMMON NORMALS: oropharynx normal Neck/C-Spine: COMMON NORMALS: no JVD Resp: COMMON NORMALS: normal respiratory effort and clear to auscultation bilaterally AUSCULTATION: clear to auscultation bilaterally Cardio: COMMON NORMALS: no JVD, regular rhythm, S1 normal heart sound present, S2 normal heart sound present and No murmurs present (Cardio) RHYTHM: regular rhythm HEART SOUNDS: S1 normal heart sound present and S2 normal heart sound present GI: COMMON NORMALS: Normal to inspection, nondistended, normoactive bowel sounds present, Soft to palpation and non-tender PALPATION: Yes Soft to palpation Extremity: COMMON NORMALS: no joint enlargement and no pedal edema OTHER: RLE splinted Neuro: COMMON NORMALS: patient oriented x3 and moves all extremities SENSORIUM/ORIENTATION: Yes alert Skin: COMMON NORMALS: no rashes or lesions noted GENERAL SKIN EXAM: no rashes or lesions noted Discharge Data Data Completed and Pending: Completed Studies During Hospitalization Category Date Time Status XR ankle RT 2V 73 600 Stat Exams 04/18/21 11:06 Completed XR tibia fibula R T 2V [id number] Stat Exams 04/18/21 11:06 Completed XR tibia fibula R T 2V 13986 Urgent Exams 04/18/21 13:06 Completed Pending at discharge Category Date Time Status XR tibia fibula R T 2V 13852 Routine Exams 04/19/21 Taken Complete Blood Co unt w/Auto AM LABS Lab 04/21/21 04:00 Ordered Labs from last 24 hours 04/20/21 04/20/21 04/20/21 02:20 02:20 02:20 WBC RBC Hgb Hct MCV MCH MCHC RDW Plt Count MPV Neut % (Auto) Lymph % (Auto) Angelina % (Auto) Eos % (Auto) Baso % (Auto) Neut # (Auto) Lymph # (Auto) Angelina # (Auto) Eos # (Auto) Baso # (Auto) Nucleated RBC % (a uto) Nucleated RBCs # Sodium 139 Potassium 4.3 Chloride 103 Carbon Dioxide 27 Anion Gap 13.3 BUN 17 Creatinine 1.0 GFR Calculation Not Reportable Glucose 104 Estimat Average Gl ucose 105 Hemoglobin A1c 5.3 Calculated Osmolal ity 290 Calcium 8.6 Total Bilirubin 0.6 AST 14 ALT 8 Alkaline Phosphata se 80 Total Protein 6.0 L Albumin 3.5 Globulin 2.5 Triglycerides 48 Cholesterol 98 LDL Cholesterol, C alc 31 L Total VLDL Cholest rufus 10 HDL Cholesterol 57 L Cholesterol/HDL Ra more 1.72 Nasal/Oral COVID-1 9 PCR 04/20/21 04/19/21 02:20 01:34 WBC 13.5 H RBC 3.99 L Hgb 12.7 Hct 37.9 L MCV 95.0 H MCH 31.8 MCHC 33.5 RDW 13.2 Plt Count 165 MPV 9.7 Neut % (Auto) 84.9 Lymph % (Auto) 6.3 Angelina % (Auto) 8.3 Eos % (Auto) 0.0 Baso % (Auto) 0.1 Neut # (Auto) 11.49 H Lymph # (Auto) 0.9 Angelina # (Auto) 1.1 H Eos # (Auto) 0.0 Baso # (Auto) 0.0 Nucleated RBC % (a uto) 0 Nucleated RBCs # 0.0 Sodium Potassium Chloride Carbon Dioxide Anion Gap BUN Creatinine GFR Calculation Glucose Estimat Average Gl ucose Hemoglobin A1c Calculated Osmolal ity Calcium Total Bilirubin AST ALT Alkaline Phosphata se Total Protein Albumin Globulin Triglycerides Cholesterol LDL Cholesterol, C alc Total VLDL Cholest rufus HDL Cholesterol Cholesterol/HDL Ra more Nasal/Oral COVID-1 9 PCR Not detected Addt'l Data from Hospital Stay: Laboratory Results WBC 13.5 10^3/uL (4.0 -10.0) H 04/20/21 02:20 RBC 3.99 10^6/uL (4.1 -5.3) L 04/20/21 02:20 Hgb 12.7 g/dL (11.7-1 6.6) 04/20/21 02:20 Hct 37.9 % (42.0-52.0 ) L 04/20/21 02:20 MCV 95.0 fl (80-94) H 04/20/21 02:20 MCH 31.8 pg (28.0-34. 0) 04/20/21 02:20 MCHC 33.5 g/dL (30.0-3 6.0) 04/20/21 02:20 RDW 13.2 % (12.1-15.1 ) 04/20/21 02:20 Plt Count 165 10^3/cmm (130 -400) 04/20/21 02:20 MPV 9.7 fL (7.4-10.4) 04/20/21 02:20 Neut % (Auto) 84.9 % 04/20/21 02:20 Lymph % (Auto) 6.3 % 04/20/21 02:20 Angelina % (Auto) 8.3 % 04/20/21 02:20 Eos % (Auto) 0.0 % 04/20/21 02:20 Baso % (Auto) 0.1 % 04/20/21 02:20 Neut # (Auto) 11.49 10^3/uL (1. 8-7.7) H 04/20/21 02:20 Lymph # (Auto) 0.9 10^3/uL (0.8- 4.8) 04/20/21 02:20 Angelina # (Auto) 1.1 10^3/uL (0.2- 0.9) H 04/20/21 02:20 Eos # (Auto) 0.0 10^3/uL (0.0- 0.8) 04/20/21 02:20 Baso # (Auto) 0.0 10^3/uL (0.0- 0.1) 04/20/21 02:20 Nucleated RBC % (a uto) 0 % 04/20/21 02:20 Nucleated RBCs # 0.0 /100WBC 04/20/21 02:20 Sodium 139 mmol/L (136-1 45) 04/20/21 02:20 Potassium 4.3 mmol/L (3.5-5 .1) 04/20/21 02:20 Chloride 103 mmol/L (98-10 7) 04/20/21 02:20 Carbon Dioxide 27 mmol/L (22-29) 04/20/21 02:20 Anion Gap 13.3 (5-19) 04/20/21 02:20 BUN 17 mg/dL (8-23) 04/20/21 02:20 Creatinine 1.0 mg/dL (0.7-1. 2) 04/20/21 02:20 GFR Calculation Not Reportable 04/20/21 02:20 Glucose 104 mg/dL (65-115 ) 04/20/21 02:20 Estimat Average Gl ucose 105 04/20/21 02:20 Hemoglobin A1c 5.3 % (4.0-6.0) 04/20/21 02:20 Calculated Osmolal ity 290 mOsm/kg (285- 295) 04/20/21 02:20 Calcium 8.6 mg/dL (8.5-10 .5) 04/20/21 02:20 Iron 67 ug/dL (59-158) 04/19/21 05:00 TIBC 202 mcg/dl 04/19/21 05:00 % Saturation 33.1 % (20-50) 04/19/21 05:00 Unsat Iron Binding 135 ug/dL (112-34 7) 04/19/21 05:00 Total Bilirubin 0.6 mg/dL (0.15-1 .2) 04/20/21 02:20 AST 14 U/L (0-40) 04/20/21 02:20 ALT 8 U/L (0-41) 04/20/21 02:20 Alkaline Phosphata se 80 IU/L (40-130) 04/20/21 02:20 Troponin T Baselin e 7 ng/L (0-15) 04/18/21 12:13 Total Protein 6.0 g/dL (6.6-8.7 ) L 04/20/21 02:20 Albumin 3.5 g/dL (3.5-5.2 ) 04/20/21 02:20 Globulin 2.5 g/dL (1.3-4.6 ) 04/20/21 02:20 Triglycerides 48 mg/dL (0-150) 04/20/21 02:20 Cholesterol 98 mg/dL (0-200) 04/20/21 02:20 LDL Cholesterol, C alc 31 mg/dL (50-129) L 04/20/21 02:20 Total VLDL Cholest rufus 10 mg/dL (0-30) 04/20/21 02:20 HDL Cholesterol 57 mg/dL (60-100) L 04/20/21 02:20 Cholesterol/HDL Ra more 1.72 mg/dL (1.0-5 .00) 04/20/21 02:20 Vitamin B12 420 pg/mL (232-12 45) 04/19/21 05:00 Folate 10.6 ng/mL (4.5-3 2.2) 04/19/21 05:00 TSH 1.36 uIU/mL (0.27 -4.20) 04/19/21 05:00 Nasal/Oral COVID-1 9 PCR Not detected 04/19/21 01:34 Impressions Ankle X-Ray 04/18/21 11:06 IMPRESSION: There is a spiral fracture of the distal diaphysis of the tibia, nondisplaced fracture of the medial malleolus and chronic appearing osteochondral lesion of the lateral talus and old avulsion fracture of the tip of the fibula. Vitals: Last Vital Signs Temp 98.0 F 04/20/21 07:35 Pulse 99 04/20/21 10:19 Resp 18 04/20/21 07:35 BP 147/74 04/20/21 10:19 Pulse Ox 97 04/20/21 07:35 Discharge Plan Discharge Patient Disposition: Home Condition: Stable Prescriptions: New amlodipine 10 mg Tablet 10 mg PO DAILY 30 Days Qty: 30 RF: 0 Continued citalopram 20 mg tablet 20 mg PO DAILY RF: 0 aspirin [Adult Aspirin Regimen] 81 mg tablet,delayed release (DR/EC) 81 mg PO DAILY RF: 0 Hold Instructions: Resume on 10/31/20. gabapentin 300 mg capsule 300 mg PO BID RF: 0 meloxicam 15 mg tablet 15 mg PO DAILY RF: 0 Hold Instructions: Resume on 11/03/20. pantoprazole 40 mg tablet,delayed release (DR/EC) 40 mg PO DAILY RF: 0 tramadol 50 mg tablet 100 mg PO BID PRN (Reason: Pain) RF: 0 Discontinued hydrochlorothiazide 12.5 mg tablet 12.5 mg PO DAILY RF: 0 Discharge Orders: Discharge Order (Routine); Ordered 04/20/21 Ordered By: Rayshawn Giraldo Referrals: John Valverde DO [Physician] - 2 weeks Guille Betancur MD [Primary Care Provider] - 4-7 days Discharge Diet: Cardiac Discharge Activity: Resume usual activity Patient Instructions: Opioid Safety Activity Restrictions/Additional Instructions: You are being discharged from the hospital today during which time you have been under the care of Dr. Valverde. You had a Right tibia fracture. You were treated for this injury with intramedullary nail of the right tibia. You may resume you normal diet (including any special diets as directed by your primary doctor) as well as your home medications. You should follow up with you primary doctor if you have any questions regarding medication you took prior to your stay in the hospital. You may take your pain medication as prescribed. After the first few days, take your pain medication as needed. Do not drive or drink alcohol while taking your pain medication. Your injury may increase your risk of developing a blood clot,or DVT, in your arm or leg. This could potentially dislodge and travel to your lungs and become a life threatening condition called apulmonary embolus,or PE. You have been prescribed full-strength aspirin to be taken to prevent this. Frequent movement of the ankle will also help prevent this from occurring. If you develop any new or worsening cough, chestpain, bloody sputum or shortness of breath, call 911 or go to the EmergencyRoom. Always keep your surgical incision/dressing clean and dry. If you experience increasing pain at your incision site, redness, swelling, increasing discharge, foul odors, or fevers (greater than 100.4), night sweats or chills you should call the office at the above number. If you feel this is an emergency you should be evaluated in the Emergency Department of a nearby hospital. Orthopedic Patient Instructions Summary: Weight Bearing: Weight-bear as tolerated Activity: As tolerated. Diet: Regular. Wound Care: Keep dressing clean and dry. Change daily as needed Anticoagulation: Aspirin Pain Medication: Take only as needed. Ice, rest and elevation will be of great benefit. Please plan to follow-up [facility] Dr Valverde in 2 weeks. You will need to call the clinic [phone] to schedule this visit. Thank you far allowing me to participate in your care. Do not hesitate to call the office with any questions or concerns. Discharge Attestations Time Spent in Discharge Care*: greater than 30 min Specific Discharge Activities: educating patient, discussing with pcp/other providers, discussing with residential case manager/social workers/dc planners, documenting/other paperwork and evaluating patient/reviewing data Status at Discharge: Cognitive status at discharge: cognitively intact, Behavioral status at discharge: cooperative, Functional status at discharge: uses cane/walker Overall status at discharge: patient is progressing back to baseline Quality Metrics Clinical Quality Measures During this hospital stay, did patient experience: None Coding Level of Care Code Acute [facility] DC note Diagnoses Fracture of tibia with fibula, right, closed S82.201A; S82.401A
--- NOTE | 2021-04-20 11:23 | PC.NURSE ---
patient refuses to let end of the bad be locked out. i reported this to the nurse. he is being discharged today.
--- NOTE | 2021-04-20 12:46 | PC.OT ---
OT NOTE: OT EVALUATION COMPLETED; SCREEN ONLY. PATIENT DEMONSTRATES NO DEFICITS IN ADLS. NO FURTHER SKILLED OT REQUIRED AT THIS TIME.
--- NOTE | 2021-04-20 12:59 | PC.NURSE ---
discharge instructions given to patient and patient verbalized understanding of instructions. patient called family for ride home.
--- NOTE | 2021-04-20 13:31 | PC.NURSE ---
patient taken to private vehicle via wheelchair by teletypewriter installer.
--- NOTE | 2021-04-21 12:50 | PC.SOCIAL ---
discharge follow up call made. spoke with patient. he reports his pain is under control. is taking tramadol for pain and extra strength tylenol. patient is aware of follow up appointments with dr. dejesus and dr. preciado. patient reports he is able to walk to the bathroom comfortably. discussed using ice and elevation. patient denies questions or concerns, verbalizes understanding of teaching and medications.
== END 2021-04-20 13:32 | disposition home or self-care (01) ==
LOC: ER 10:59 → MEDSURG 13:40
PROVIDERS: Orthopaedic Surgery; Admitting Provider Internal Medicine; Emergency Provider Emergency Medicine; PCP Family Medicine; Visit Provider Student in an Organized Health Care Education/Training Program
PROC: (CPT 27756; principal; 2021-04-19 11:55)
DX: S82.201A Unspecified fracture of shaft of right tibia, initial encounter for closed fracture (principal); S82.401A Unspecified fracture of shaft of right fibula, initial encounter for closed fracture; W19.XXXA Unspecified fall, initial encounter; Z79.82 Long term (current) use of aspirin; N40.1 Benign prostatic hyperplasia with lower urinary tract symptoms; N13.8 Other obstructive and reflux uropathy; K21.9 Gastro-esophageal reflux disease without esophagitis; I10 Essential (primary) hypertension; Z82.49 Family history of ischemic heart disease and other diseases of the circulatory system; Z83.3 Family history of diabetes mellitus; F32.9 Major depressive disorder, single episode, unspecified
CPT/HCPCS: 27756; 27752; 36415; 73590; 73600; 76000; 80048; 80053; 80061; 82607; 82746; 83036; 83540; 83550; 84443; 84484; 85025; 87635; 93005; 96365; 96367; 96372; 96375; 96376; 97116; 97161; 97530; 99285; C1713; G0378; J0690; J1100; J1170; J1644; J2405; J2704; J3010; J7030

== ENCOUNTER → 2021-05-28 11:22 | Outpatient (BNVA) | payer OTHER, SELFPAY | PROVIDERS: PCP Family Medicine; Visit Provider Orthopaedic Surgery | DX: S82.201A Unspecified fracture of shaft of right tibia, initial encounter for closed fracture (principal); S82.401A Unspecified fracture of shaft of right fibula, initial encounter for closed fracture; X58.XXXA Exposure to other specified factors, initial encounter | CPT/HCPCS: 73590 ==

== ENCOUNTER 2021-07-07 14:16 | Outpatient (CLI) | payer OTHER, SELFPAY ==
--- NOTE | 2021-07-07 14:00 | XR_ITS ---
WS: [id number] Exam: XR KUB [id number] Date/Time of Exam: 07/07/2021 2:00 PM Reason For Exam: BLADDER STONE Comparison 05/14/2020. No bowel obstruction or free air. Several small calcification superimpose the left kidney and may rep resent stones. There are numerous surgical clips in the bilateral pelvis. No sign of organ enlargemen t. XR/XR KUB [id number] IMPRESSION: 1. No acute finding. 2. Several small calcification superimpose left kidney and may represent small renal stones.
== END 2021-07-07 14:17 | disposition home or self-care (01) ==
LOC: RAD 14:18
PROVIDERS: PCP Family Medicine; Visit Provider Urology
DX: N21.0 Calculus in bladder (principal); N20.0 Calculus of kidney
CPT/HCPCS: 74018; 81003

== ENCOUNTER → 2021-07-15 07:57 | Outpatient (BNVA) | payer OTHER, SELFPAY | PROVIDERS: PCP Family Medicine; Visit Provider Orthopaedic Surgery | DX: S82.201A Unspecified fracture of shaft of right tibia, initial encounter for closed fracture (principal); S82.401A Unspecified fracture of shaft of right fibula, initial encounter for closed fracture; X58.XXXA Exposure to other specified factors, initial encounter | CPT/HCPCS: 73590 ==

== ENCOUNTER → 2021-10-14 08:00 | Outpatient (BNVA) | payer OTHER, SELFPAY | PROVIDERS: PCP Family Medicine; Visit Provider Orthopaedic Surgery | DX: S82.201A Unspecified fracture of shaft of right tibia, initial encounter for closed fracture (principal); S82.401A Unspecified fracture of shaft of right fibula, initial encounter for closed fracture; Z48.89 Encounter for other specified surgical aftercare; X58.XXXA Exposure to other specified factors, initial encounter | CPT/HCPCS: 73590 ==

== ENCOUNTER 2021-11-03 09:03 | Outpatient (CLI) | payer OTHER, SELFPAY ==
--- NOTE | 2021-11-03 09:22 | US_ITS ---
WS: [id number] ULTRASOUND ABDOMEN CLINICAL INFORMATION: RU EPIGASTRIC ABDOMINAL PAIN COMPARISON: None. FINDINGS: Liver Size: Normal. Craniocaudal length: 13.0 cm. Echogenicity: Normal. Surface nodularity: None. Mass (size and location): None. Bile ducts Intrahepatic ducts: Normal. Common bile duct diameter: 0.3 cm. Gallbladder Normal. Gallstones: None. Gallbladder sludge: None. Gallbladder wall thickening: None. Pericholecystic fluid: None. Sonographic Martin sign: Absent. Pancreas Normal as visualized. Spleen Splenomegaly: None. Craniocaudal length: 10.7 cm. Right kidney: Normal. Hydronephrosis: None. Size: 9.2 cm x 5.9 cm x 3.9 cm Left kidney: Normal. Hydronephrosis: None. Size: 9.8 cm x 4.6 cm x 4.3 cm. Abdominal aorta and IVC Visualized portions are normal. Ascites: None. US/US abdomen complete* [id number] IMPRESSION: 1. Normal liver. 2. Normal gallbladder. No cholelithiasis. Normal common bile duct. 3. No hydronephrosis in either kidney. 4. 50 mm nonobstructing calculus inferior pole RIGHT kidney. 5. Normal spleen. 6. No ascites.
== END 2021-11-03 09:04 | disposition home or self-care (01) ==
LOC: RAD 09:06
PROVIDERS: PCP Family Medicine; Visit Provider Family Medicine
DX: R10.13 Epigastric pain (principal); N20.0 Calculus of kidney
CPT/HCPCS: 76700

== ENCOUNTER → 2021-11-10 08:38 | Outpatient (BNVA) | payer OTHER, SELFPAY | PROVIDERS: PCP Family Medicine; Referring Provider Family Medicine; Visit Provider Surgery | DX: Z86.010 Personal history of colon polyps (principal) | CPT/HCPCS: 99203 ==

== ENCOUNTER 2022-07-07 07:55 | Outpatient (CLI) | payer OTHER, SELFPAY ==
--- NOTE | 2022-07-07 08:27 | XR_ITS ---
WS: [id number] EXAMINATION: XR KUB [id number] REASON FOR EXAM: STONES COMPARISON: 07/07/2021 ORDER DATE: 07/07/2022 8:27 AM FINDINGS: There is a nonspecific colonic gas pattern with scattered fecal content and gas. There is no sign of significant small bowel dilation. There is a single 10 mm lower pole right renal calculus. There are scattered small left renal calculi. Cluster prosthetic calcifications noted. Previous bilateral inguinal surgeries. XR/XR KUB [id number] IMPRESSION: Bilateral renal calculi without significant change from previous
== END 2022-07-07 07:56 | disposition home or self-care (01) ==
LOC: RAD 07:57
PROVIDERS: PCP Family Medicine; Visit Provider Urology
DX: N40.1 Benign prostatic hyperplasia with lower urinary tract symptoms (principal); N20.9 Urinary calculus, unspecified
CPT/HCPCS: 51741; 51798; 74018; 81003; 99213

== ENCOUNTER → 2023-02-08 11:36 | Outpatient (BNVA) | payer OTHER, SELFPAY | PROVIDERS: PCP Family Medicine; Visit Provider Internal Medicine Cardiovascular Disease | DX: R07.9 Chest pain, unspecified (principal); R55 Syncope and collapse; R00.1 Bradycardia, unspecified; R53.83 Other fatigue; R42 Dizziness and giddiness; I10 Essential (primary) hypertension; R94.31 Abnormal electrocardiogram [ECG] [EKG] | CPT/HCPCS: 93005; 99204 ==

== ENCOUNTER → 2023-02-14 13:07 | Outpatient (BNVA) | payer OTHER, SELFPAY | PROVIDERS: PCP Family Medicine; Visit Provider Internal Medicine Cardiovascular Disease | DX: R00.1 Bradycardia, unspecified (principal); R55 Syncope and collapse | CPT/HCPCS: 93242 ==

== ENCOUNTER 2023-03-03 07:17 | Outpatient (CLI) | payer OTHER, SELFPAY ==
--- NOTE | 2023-03-03 07:26 | USCV_ITS ---
Alexander Juarez Age: 72 Gender: M : 1950 Exam Date: 03/03/2023 08:06 Ordering Phys: Carlos Stoddard MD ([email or web address]) Technologist: NAMRATA [place] [facility] [place]: SYNCOPE BP: 114 / 70 HR: 50 Rhythm: Sinus Technical Quality: Adequate MEASUREMENTS (Male / Female) Normal Values 2D ECHO LVOT Diameter 2.0 cm LV Ejection Fraction MOD 2C 59.5 % LV Ejection Fraction 2C AL 60.6 % LA Diameter 2.3 cm LA Width 3.0 cm LA Height 4.2 cm RA Width 2.9 cm RA Height 4.5 cm Aorta at Sinotubular Diameter 2.4 cm IVC Diameter 1.5 cm M-MODE Aortic Annulus Diameter 3.2 cm LA Ao Ratio MM 0.4 MV E Point Septal Separation 0.3 cm DOPPLER AV Peak Velocity 108.0 cm/s LVOT Peak Velocity 84.0 cm/s AV Area Cont Eq vti 3.4 cm squared AV Area Cont Eq pk 2.4 cm squared MV Peak Velocity 109.0 cm/s MV Area PHT 3.5 cm squared Mitral E to A Ratio 1.1 MV E' Velocity 50.5 cm/s Mitral E to MV E' Ratio 12.0 Mitral E to LV E' Lateral Ratio 13.7 Mitral E to LV E' Septal Ratio 10.6 TR Peak Velocity 142.7 cm/s TR Peak Gradient 8.1 mmHg TR Mean Velocity 109.9 cm/s TR Mean Gradient 5.2 mmHg TR Velocity Time Integral 42.6 cm TV Peak E Velocity 39.0 cm/s Right Atrial Pressure 3.0 mmHg Pulmonary Artery Systolic Pressu 11.1 mmHg FINDINGS Left Ventricle Normal left ventricular size and systolic function, EF 61 %. No regional wall motion abnormalities. Right Ventricle The right ventricle is normal in size and function. Right Atrium The right atrium is normal in size. Left Atrium The left atrium is normal in size. Mitral Valve No gross abnormalities noted . Aortic Valve Thickened aortic valve. Mild aortic valve calcification. Tricuspid Valve Trace tricuspid valve regurgitation. Pulmonic Valve Pulmonic valve not well visualized. Estimated pulmonary artery peak systolic pressure, within normal Pericardium Normal pericardium without effusion. Aorta Normal ascending aorta dimension. IVC The inferior vena cava appears normal. CONCLUSIONS Normal left ventricular size and systolic function, EF 61 %. No regional wall motion abnormalities. Thickened aortic valve. Mild aortic valve calcification. Trace tricuspid valve regurgitation. Estimated pulmonary artery peak systolic pressure, within normal. There are no intracardiac masses. Dr Carlos Stoddard MD FAC (Electronically Signed) Final Date: 04 March 2023 10:21 S
== END 2023-03-03 07:18 | disposition home or self-care (01) ==
PROVIDERS: PCP Family Medicine; Visit Provider Internal Medicine Cardiovascular Disease
DX: I08.2 Rheumatic disorders of both aortic and tricuspid valves (principal); R06.09 Other forms of dyspnea
CPT/HCPCS: 93306

== ENCOUNTER → 2023-04-17 08:40 | Outpatient (BNVA) | payer OTHER, SELFPAY | PROVIDERS: PCP Family Medicine; Visit Provider Nurse Practitioner Family | DX: R42 Dizziness and giddiness (principal) | CPT/HCPCS: 99213 ==

== ENCOUNTER 2023-12-04 08:48 | Emergency (ER) | payer OTHER, SELFPAY ==
[2023-12-04 08:49] VITALS: BP 127/87; PULSE 55; RESP 18; TEMP 36.8; O2SAT 95; BMI 22.3
--- NOTE | 2023-12-04 08:53 | ECG_ITS ---
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 Measurements Intervals [place] Rate: 51 P: 65 [place]: 215 QRS: 62 QRSD: 79 T: 74 QT: 418 QTc: 388 Interpretive Statements SINUS BRADYCARDIA WITH FIRST DEGREE AV BLOCK Compared to ECG 02/08/2023 11:59:07 First degree AV block now present Sinus rhythm no longer present Electronically Signed On 12-04-2023 10:54:14 CDT by Jesús Young M.D. [email or web address]
--- NOTE | 2023-12-04 09:15 | XRR_ITS ---
PROCEDURE INFORMATION: Exam: XR Chest Exam date and time: 12/04/2023 9:17 AM Age: 73 years old Clinical indication: Cough and dyspnea; Prior surgery; Surgery date: 6+ months; Surgery type: Hernia; Additional info: Dyspnea/cough TECHNIQUE: Imaging protocol: Radiologic exam of the chest. Views: 1 view. COMPARISON: CR XR KUB [id number] 07/07/2022 8:32 AM FINDINGS: Lungs: There is minimal atelectasis or scarring in the right lung base. There are no definite infiltrates. Pleural spaces: Unremarkable. No pleural effusion. No pneumothorax. Heart/Mediastinum: The heart size is within normal limits. Vasculature: There are atherosclerotic changes involving the aorta. Bones/joints: Unremarkable. XR/XR chest 1V portable [id number] IMPRESSION: No active infiltrates.
--- NOTE | 2023-12-04 09:31 | ED_ITS ---
HPI - Chest Pain 2 General: Chief Complaint: Chest Pain Stated Complaint: Chest Pain Time Seen by Provider: 12/04/23 08:50 Source: patient Mode of arrival: ambulatory History of Present Illness: 73-year-old male presents emergency room complaining of epigastric pain radiating up to his chest began last night intermittently been bothering him. He had the episode last night it resolved spontaneously then recurred again this morning after he was drinking coffee. He has a history of reflux and a hiatal hernia. Denies hematochezia melena hematemesis or coffee-ground emesis. MD complaint: chest pain Onset (ago): hour(s) Timing of current episode: episodic Onset: during rest Pain location: substernal Pain radiation: none Severity: mild Quality: aching Relieving factors: nothing Exacerbating factors: nothing Associated symptoms: Reports abdominal pain and nausea; Deny diaphoresis, dyspnea, fever(s), leg edema, palpitations, sense of impending doom, syncope or vomiting Treatment prior to arrival: none Review of Systems 2 Const: Denies: fever(s), chills or diaphoresis Card: Reports: chest pain; Denies: palpitations or syncope Resp: Denies: dyspnea GI: Reports: abdominal pain and nausea; Denies: vomiting : Denies: dysuria, urinary frequency or urinary urgency Musc: Denies: neck pain or back pain Skin/Breast: Denies: rash PFSH ED 2 PFSH: Medical History Osteoarthritis Gastritis and duodenitis Esophagitis Urolithiasis BPH loc w urin obs/LUTS HTN (hypertension) GERD (gastroesophageal reflux disease) RLS (restless legs syndrome) Bladder stone Gross hematuria Status post extracorporeal shock wave therapy LASER LITHOTRIPSY BLADDER STONE Surgical History History of colonoscopy History of surgery on lower extremity Hx of bilateral inguinal hernia repair Family History Father Diabetes Chronic kidney disease (CKD) Mother CAD (coronary artery disease) Social History Smoking and tobacco/nicotine status: never used tobacco/nicotine Alcohol intake: current Alcohol intake frequency: holidays/special occasions only Substance/Drug Use: unknown Adopted: No Caregiver/support person: No Lives independently: No Household members: spouse Marital status: Current occupational status: retired Physical Exam 2 Const: COMMON NORMALS: no acute distress GENERAL APPEARANCE: cooperative and comfortable ORIENTATION/CONSCIOUSNESS: Yes awake, Yes oriented to person, Yes oriented to place and Yes oriented to time HENMT: COMMON NORMALS: normocephalic, atraumatic and hearing grossly normal bilaterally HEAD & SCALP: normocephalic and atraumatic Resp: COMMON NORMALS: normal respiratory effort, No retractions, No use of accessory muscles and clear to auscultation bilaterally AUSCULTATION: clear to auscultation bilaterally Cardio: COMMON NORMALS: regular rate, regular rhythm and No murmurs present (Cardio) RATE: regular rate RHYTHM: regular rhythm GI: COMMON NORMALS: Soft to palpation and No hepatosplenomegaly present A USCULTATION: Yes normoactive bowel sounds PALPATION: Yes Soft to palpation, No Tenderness to palpation present (GI), No Guarding due to palpation present (GI) and Yes No hepatosplenomegaly present Extremity: COMMON NORMALS: normal to inspection, capillary refill normal, no clubbing, cyanosis or edema, no calf tenderness and no pedal edema Neuro: SENSORIUM/ORIENTATION: Yes oriented to person, Yes oriented to place and Yes oriented to time Skin: COMMON NORMALS: no rashes or lesions noted GENERAL SKIN EXAM: no rashes or lesions noted Course 2 Vital Signs: Vital signs: Vital Signs Temperature 98.3 F 12/04/23 08:49 Pulse Rate 58 L 12/04/23 12:30 Respiratory Rate 18 12/04/23 08:49 Blood Pressure 149/88 12/04/23 12:30 Pulse Oximetry 98 12/04/23 12:30 Oxygen Delivery Me thod Room Air 12/04/23 12:30 MDM - Chest Pain Medical Decision Making EKG did not show any acute changes cardiac enzymes trending normal. Suspect this is more GI in nature. He is not having any further symptoms. Discussed findings with the patient we will discharge him home increase his pantoprazole have him follow-up with his primary care doctor return if he has further problems. Medical Records I reviewed the patient's medical records. Lab Data I reviewed the patient's lab results. 12/04/23 09:33 12/04/23 08:53 Radiology Impressions Chest X-Ray 12/04/23 09:15 IMPRESSION: No active infiltrates. Laboratory Results WBC 6.13 10^3/uL (3.29-11.43) 12/04/23 09:33 RBC 4.03 10^6/uL (3.85-5.65) 12/04/23 09:33 Hgb 13.00 g/dL (11.27-16.99) 12/04/23 09:33 Hct 38.0 % (37-53) 12/04/23 09:33 MCV 94.3 fl (82-101) 12/04/23 09:33 MCH 32.3 pg (27-33) 12/04/23 09: MCHC 34.2 g/dL (30-55) 12/04/23 09:33 RDW 13.7 % (12.1-15.1) 12/04/23 09:33 Plt Count 170 10^3/cmm (157-399) 12/04/23 09:33 MPV 9.3 fL (7.4-10.4) 12/04/23 09:33 Neut % (Auto) 64.9 % 12/04/23 09:33 Lymph % (Auto) 19.4 % 12/04/23 09:33 [place] % (Auto) 9.0 % 12/04/23 09:33 Eos % (Auto) 5.9 % 12/04/23 09:33 Baso % (Auto) 0.5 % 12/04/23 09:33 Neut # (Auto) 3.98 10^3/uL (1.8-7.7) 12/04/23 09:33 Lymph # (Auto) 1.2 10^3/uL (0.8-4.8) 12/04/23 09:33 [place] # (Auto) 0.6 10^3/uL (0.2-0.9) 12/04/23 09:33 Eos # (Auto) 0.4 10^3/uL (0.0-0.8) 12/04/23 09:33 Baso # (Auto) 0.0 10^3/uL (0.0-0.1) 12/04/23 09:33 Nucleated RBC % (auto) 0 % 05/06/24 09:33 Nucleated RBCs # 0.0 /100WBC 12/04/23 09:33 Sodium 142 mmol/L (136-145) 12/04/23 08:53 Potassium 4.0 mmol/L (3.5-5.1) 12/04/23 08:53 Chloride 105 mmol/L (98-107) 12/04/23 08:53 Carbon Dioxide 29 mmol/L (22-29) 12/04/23 08:53 Anion Gap 12.0 (5-19) 12/04/23 08:53 BUN 17 mg/dL (8-23) 12/04/23 08:53 Creatinine 1.2 mg/dL (0.7-1.2) 12/04/23 08:53 GFR Calculation Not Reportable 12/04/23 08:53 Glucose 84 mg/dL (65-115) 12/04/23 08:53 Calculated Osmolality 295 mOsm/kg (285-295) 12/04/23 08:53 Calcium 8.6 mg/dL (8.5-10.5) 12/04/23 08:53 Total Bilirubin 0.5 mg/dL (0.15-1.2) 12/04/23 08:53 AST 18 U/L (0-40) 12/04/23 08:53 ALT 14 U/L (0-41) 12/04/23 08:53 Alkaline Phosphatase 76 U/L (40-130) 12/04/23 08:53 Troponin T Baseline 11 ng/L (0-15) 12/04/23 08:53 Troponin T 120 Minute 10.49 ng/L (0-15) 12/04/23 11:18 Delta Troponin T -0.51 ABS# (0-10) L 12/04/23 11:18 Total Protein 6.3 g/dL (6.6-8.7) L 12/04/23 08:53 Albumin 4.0 g/dL (3.5-5.2) 12/04/23 08:53 Globulin 2.3 g/dL (1.3-4.6) 12/04/23 08:53 All radiology interpretation(s) finalized by discharge Discharge Plan Discharge Patient Disposition: Home Clinical Impression: Atypical chest pain, Hernia, hiatal Condition: Stable Prescriptions: Changed pantoprazole 40 mg tablet,delayed release (DR/EC) 40 mg PO BID Qty: 60 0RF No Action aspirin [Adult Aspirin Regimen] 81 mg tablet,delayed release (DR/EC) 81 mg PO DAILY Hold Instructions: Resume on 10/31/20. gabapentin 300 mg capsule 600 mg PO BID citalopram 20 mg tablet 40 mg PO DAILY tamsulosin 0.4 mg capsule 0.4 mg PO QPM tramadol 50 mg tablet 100 mg PO BID PRN (Reason: Pain) Qty: 120 5RF fexofenadine 60 mg Tablet 60 mg PO QAM ropinirole 0.5 mg Tablet 0.5 mg PO QPM PRN (Reason: Restless Leg(S)) lidocaine 5 % Adhesive Patch,Medicated 1 patch TOPICAL DAILY PRN (Reason: Pain) Rx Instructions: leave on most painful area for up to 12 hrs losartan-hydrochlorothiazide 50-12.5 mg Tablet 1 tab PO QAM Flonase 50 mcg/actuation [place],Suspension 1 spray INTRANASAL DAILY Rx Instructions: administer into each nostril finasteride 5 mg Tablet 5 mg PO DAILY rosuvastatin 20 mg Tablet 10 mg PO QPM Daily Multi 18-400 mg-mcg Tablet 1 tab PO QAM Discharge Orders: Discharge ED (Routine); Ordered 12/04/23 Ordered By: Ryan Carrera Referrals: Guille Betancur MD [Primary Care Provider] - Discharge Diet: As Directed Discharge Activity: Increase activity as tolerated Patient Instructions: GERD (Gastroesophageal Reflux Disease) (ED), Opioid Safety, Pain Management Activity Restrictions/Additional Instructions: Thank you for choosing [facility] for your healthcare needs today. Please realize this is an emergency room and that we are providing you with a medical screening exam and this may not be complete and all inclusive of all the testing and or work up that you may need to determine your ailment or severity of your illness. It is very important that you follow up as instructed or that you return to the Emergency Department should you have concerns or if your condition changes or worsens in any way. Follow-up with your primary care doctor Coding Level of Care Code ED Field Hauler for Sharyn Ledezma
[2023-12-04 09:38] LABS: Basophils % 0.5 %; Eosinophils # 0.4 10^3/uL (0.0-0.8); Eosinophils % 5.9 %; Lymphocytes # 1.2 10^3/uL (0.8-4.8); Lymphocytes % 19.4 %; Mean Corpuscular HGB Conc 34.2 g/dL (30-55); Mean Corpuscular Hemoglobin 32.3 pg (27-33); Mean Corpuscular Volume 94.3 fl (82-101); Mean Platelet Volume 9.3 fL (7.4-10.4); Monocytes # 0.6 10^3/uL (0.2-0.9); Neutrophils # 3.98 10^3/uL (1.8-7.7); Neutrophils % 64.9 %; Nucleated Red Blood Cells % 0 %; Platelet Count 170 10^3/cmm (157-399); Red Blood Count 4.03 10^6/uL (3.85-5.65); Red Cell Distribution Width 13.7 % (12.1-15.1); White Blood Count 6.13 10^3/uL (3.29-11.43)
[2023-12-04 09:39] LABS: Alanine Aminotransferase 14 U/L (0-41); Alkaline Phosphatase 76 U/L (40-130); Aspartate Amino Transferase 18 U/L (0-40); Blood Urea Nitrogen 17 mg/dL (8-23); Calcium 8.6 mg/dL (8.5-10.5); Carbon Dioxide 29 mmol/L (22-29); Chloride 105 mmol/L (98-107); Creatinine Clr Calc Pharmacy 52.5242; Globulin 2.3 g/dL (1.3-4.6); Glucose 84 mg/dL (65-115); Osmolality Calculated 295 mOsm/kg (285-295); Sodium 142 mmol/L (136-145); Total Bilirubin 0.5 mg/dL (0.15-1.2); Total Protein 6.3 g/dL (6.6-8.7)
[2023-12-04 09:40] LABS: Troponin(5th) Baseline 11 ng/L (0-15)
[2023-12-04] MEDS: aspirin 81 mg Chew Tablet 162 MG PO (09:50)
[2023-12-04 10:00] VITALS: BP 131/82; PULSE 48; O2SAT 97
--- NOTE | 2023-12-04 11:15 | ECG_ITS ---
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 Measurements Intervals [place] Rate: 46 P: 60 SD: 231 QRS: 58 QRSD: 89 T: 63 QT: 451 QTc: 398 Interpretive Statements SINUS BRADYCARDIA WITH FIRST DEGREE AV BLOCK Compared to ECG 12/04/2023 08:53:58 No significant changes Electronically Signed On 12-04-2023 23:25:19 CDT by Jesús Young M.D. [id number]
[2023-12-04 11:30] VITALS: BP 130/82; PULSE 51; O2SAT 98
[2023-12-04 11:57] LABS: Troponin 5 2HR 10.49 ng/L (0-15)
[2023-12-04 12:00] LABS: Troponin 5 2HR Delta -0.51 ABS# (0-10)
[2023-12-04 12:30] VITALS: BP 149/88; PULSE 58; O2SAT 98
== END 2023-12-04 13:02 | disposition home or self-care (01) ==
PROVIDERS: Emergency Provider Family Medicine; PCP Family Medicine
DX: R07.89 Other chest pain (principal); K44.9 Diaphragmatic hernia without obstruction or gangrene; Z79.82 Long term (current) use of aspirin; I10 Essential (primary) hypertension
CPT/HCPCS: 36415; 71045; 80053; 84484; 85025; 93005; 99285

== ENCOUNTER → 2024-04-02 11:25 | Outpatient (BNVA) | payer OTHER, SELFPAY | PROVIDERS: PCP Family Medicine; Visit Provider Internal Medicine Cardiovascular Disease | DX: R00.1 Bradycardia, unspecified (principal); I10 Essential (primary) hypertension; R53.82 Chronic fatigue, unspecified; R42 Dizziness and giddiness; Z87.891 Personal history of nicotine dependence | CPT/HCPCS: 99213 ==

== ENCOUNTER → 2024-10-08 14:01 | Outpatient (BNVA) | payer OTHER, SELFPAY | PROVIDERS: PCP Family Medicine; Visit Provider Nurse Practitioner Family | DX: L21.8 Other seborrheic dermatitis (principal); L82.1 Other seborrheic keratosis; L81.4 Other melanin hyperpigmentation; L57.8 Other skin changes due to chronic exposure to nonionizing radiation; D22.62 Melanocytic nevi of left upper limb, including shoulder; D69.2 Other nonthrombocytopenic purpura; L82.0 Inflamed seborrheic keratosis; Z78.9 Other specified health status; L53.8 Other specified erythematous conditions; L29.89 Other pruritus; L57.0 Actinic keratosis | CPT/HCPCS: 17000; 17110; 99214 ==

== ENCOUNTER 2024-11-06 06:48 | Outpatient (CLI) | payer OTHER, SELFPAY ==
--- NOTE | 2024-11-06 06:55 | USCV_ITS ---
Alexander Juarez Age: 74 Gender: M : 1950 Exam Date: 11/06/2024 07:02 Ordering Phys: Sasha Theodore MD Technologist: [facility] [place] [facility] [place]: [place]iness Risk Factors: Previous Vascular Surgery: Right Brachial BP: / Left Brachial BP: / Right Left Velocity (cm/s) Spectral Plaque Velocity (cm/s) Spectral Plaque Syst/Diast Broadening Syst/Diast Broadening 61.60/ 17.50 Prox CCA 66.70 / 21.40 73.70/ 20.60 Mid CCA 62.40 / 16.20 62.20/ 18.50 Distal CCA 52.30 / 16.80 42.40/ 11.60 Prox ICA 37.10 / 19.80 52.00/ 20.20 Mid ICA 56.30 / 22.10 53.50/ 17.90 Distal ICA 62.60 / 24.40 48.00 ECA 39.90 0.70 ICA/CCA 0.70 Antegrade Vertebral Antegrade 32.80/ 9.70 cm/s 30.10/ 10.50 cm/s Tri Subclavian Tri 58.30 48.10 CONCLUSIONS Right ICA stenosis <50%. Mild atheromatous plaque right carotid bulb/ICA. Left ICA stenosis <50%. Mild atheromatous plaque left carotid bulb/ICA. Normal antegrade Doppler flow noted in the right vertebral artery. Normal antegrade Doppler flow noted in the left vertebral artery. Jose Manuel De Los Santos MD (Electronically Signed) Final Date: 06 November 2024 09:32 S
== END 2024-11-06 06:49 | disposition home or self-care (01) ==
PROVIDERS: PCP Family Medicine; Visit Provider Family Medicine
DX: R42 Dizziness and giddiness (principal); I65.23 Occlusion and stenosis of bilateral carotid arteries
CPT/HCPCS: 93880

== ENCOUNTER 2025-07-09 07:19 | Outpatient (CLI) | payer OTHER, SELFPAY ==
--- NOTE | 2025-07-09 07:25 | CT_ITS ---
WS: [id number] CT HEAD NONCONTRAST HISTORY: DIZZINESS TECHNIQUE: Contiguous axial imaging performed through the brain. Bone and soft tissue windows. Sagittal and coronal reformats reviewed. All CT scans at [facility] use at least one of these dose optimization techniques: automated exposure control; mA and/or kV adjustment per patient size (includes targeted exams where dose is matched to clinical indication); or iterative reconstruction. DLP: 1025.98 mGy.cm COMPARISON: None available. No acute intracranial hemorrhage, midline shift or mass effect. Mild cerebral and cerebellar atrophy and small vessel changes. Small lacunar infarct LEFT anterior internal capsule. Ventricles: Normal size with no hydrocephalus. Paranasal sinuses: Mild mucoperiosteal thickening within the paranasal sinuses. No air-fluid levels. Mastoid air cells: Well pneumatized. Calvarium and scalp: Skull is intact with no soft tissue edema or swelling. Mild atherosclerotic plaque to the intracranial carotid arteries. CT/CT head wo con* [id number] IMPRESSION: 1. No acute intracranial hemorrhage or edema. 2. Mild cerebral cerebral atrophy and small vessel disease. 3. Atherosclerotic plaque in the intracranial carotid arteries.
== END 2025-07-09 07:20 | disposition home or self-care (01) ==
LOC: RAD 07:20
PROVIDERS: PCP Family Medicine; Visit Provider Family Medicine
DX: R42 Dizziness and giddiness (principal); I67.89 Other cerebrovascular disease; G31.9 Degenerative disease of nervous system, unspecified
CPT/HCPCS: 70450